=== PATIENT | female | born 1970 | race Caucasian/White ===

== ENCOUNTER 2023-11-10 08:44 | Emergency (ER) | payer OTHER, BC ==
[2023-11-10 08:58] VITALS: TEMP 98.2
--- NOTE | 2023-11-10 09:04 | ED ---
Recheck HPI - General Chief Complaint: Recheck/Abnormal Lab/Rx Stated Complaint: poss DVT Time Seen by Provider: 11/10/23 08:49 Source: patient, RN notes reviewed Mode of arrival: ambulatory Limitations: no limitations - History of Present Illness Initial Comments: This is a 53-year-old female who presents to the emergency department for coughing and congestion. Symptoms started 2 weeks ago. States that she was diagnosed with pneumonia. She was given a shot of antibiotics at her primary care provider's office a couple of days ago and given a prescription for albuterol and steroids. States that it no longer hurts to breathe and she feels like she may be improving to some extent, but is still symptomatic. Cough is productive with yellow sputum. She only had mild chest discomfort when trying to cough, but otherwise denies any chest pain or shortness of breath. Also denies any pain in her extremities. Her primary care provider advised she come to the emergency department to rule out a blood clot. Denies any history of blood clots. Not taking any blood thinners. - Related Data Home Medications Medication Instructions Recorded Confirmed Albuterol Sulfate [Albuterol 1 - 2 puff PO RT-Q4H PRN 11/10/23 11/10/23 Sulfate Hfa] Atorvastatin [Lipitor] 20 mg PO HS 11/10/23 11/10/23 amLODIPine [Norvasc] 10 mg PO HS 11/10/23 11/10/23 predniSONE 10 mg PO DAILY 11/10/23 11/10/23 Previous Rx's Medication Instructions Recorded Levofloxacin [Levaquin] 750 mg PO DAILY 5 Days #5 tab 11/10/23 Allergies Allergy/AdvReac Type Severity Reaction Status Date / Time No Known Allergies Allergy Verified 11/10/23 09:22 Review of Systems ROS Statement: Those systems with pertinent positive or pertinent negative responses have been documented in the HPI. ROS Other: All systems not noted in ROS Statement are negative. Past Medical History Past Medical History: Hyperlipidemia, Hypertension History of Any Multi-Drug Resistant Organisms: None Reported Past Surgical History: No Surgical Hx Reported Past Psychological History: No Psychological Hx Reported Smoking Status: Current every day smoker Past Alcohol Use History: Occasional Past Drug Use History: None Reported General Exam Limitations: no limitations General appearance: alert, in no apparent distress Head exam: Present: atraumatic, normocephalic, normal inspection Respiratory exam: Present: normal lung sounds bilaterally. Absent: respiratory distress, wheezes, rales, rhonchi, stridor Cardiovascular Exam: Present: normal rhythm, tachycardia Neurological exam: Present: alert, oriented X3, CN II-XII intact Psychiatric exam: Present: normal affect, normal mood Skin exam: Present: warm, dry, intact, normal color. Absent: rash Course Vital Signs 11/10/23 11/10/23 11/10/23 08:46 09:04 09:19 Temperature 98.2 F Pulse Rate 110 H 104 H Respiratory 22 20 20 Rate Blood Pressure 179/87 167/95 O2 Sat by Pulse 98 96 Oximetry 11/10/23 11/10/23 10:00 11:59 Temperature Pulse Rate 90 85 Respiratory 20 20 Rate Blood Pressure 150/80 145/98 O2 Sat by Pulse 96 97 Oximetry Medical Decision Making - Medical Decision Making This is a 53 year old female who presents to the emergency department for a cough. Was pt. sent in by a medical professional or institution? @ -Her PCP Did you speak to anyone other than the patient for history? @ -No Did you review nursing and triage notes? @ -Yes, and I agree, it is accurate with regards to the patient's symptoms. Were old charts reviewed? @ -No Differential Diagnosis? @ -Differential Cough: Influenza, Covid, RSV, croup, allergic rhinitis, GERD, pneumonia, bronchitis, COPD, viral pharyngitis, streptococcal pharyngitis, this is not meant to be an all-inclusive list. EKG interpreted by me (3pts min.)? @ -EKG interpreted by me demonstrating the following: Sinus tachycardia. Ventricular rate 109 bpm, CT interval 127 ms, QRS duration 90 ms, QTc 385 ms. X-rays interpreted by me (1pt min.)? @ -Chest x-ray obtained. My interpretation identifies an opacity in the right midlung. CT interpreted by me (1pt min.)? @ -CTA of the chest obtained. My interpretation identifies no evidence of a pulmonary embolus. U/S interpreted by me (1pt. min.)? @ -Not obtained What testing was considered but not performed? (CT, X-rays, U/S, labs)? Why? @ -None What meds were considered but not given? Why? @ -None Did you discuss the management of the patient with other professionals? @ -No Did you reconcile home meds? @ -No Was smoking cessation discussed for >3mins.? @ -I discussed smoking cessation for greater than 3 minutes. The risk of sm oking were discussed with the patient including but not limited to risks of cancer, stroke, coronary artery disease and COPD. Also discussed with patient were multiple methods of quitting smoking. Lastly we discussed the financial cost of smoking. Was critical care preformed (if so, how long)? @ -No Were there social determinants of health that impacted care today? How? (Homelessness, low income, unemployed, alcoholism, drug addiction, transportation, low edu. Level, literacy, decrease access to med. care, penitentiary, rehab)? @ -No Was there de-escalation of care discussed even if they declined? (Discuss DNR or withdrawal of care, Hospice)? @ -No What co-morbidities impacted this encounter? (DM, HTN, Smoking, COPD, CAD, Cancer, CVA, Hep., AIDS, mental health diagnosis, sleep apnea, morbid obesity)? @ -HLD, HTN, smoking Was patient admitted / discharged? @ -Lab work demonstrates an elevated lactic acid of 4.1. D-dimer also elevated at 1.04. Chest x-ray demonstrates a right midlung airspace opacity. They advised correlation for pneumonia versus mass. Given the elevated D-dimer and the patient's symptoms, CTA of the chest was obtained. This demonstrated no evidence of a pulmonary embolus. There is a right hilar lung mass suspicious for neoplasm. This appears to be encasing the right middle lobe bronchus with narrowing. There are also enlarged mediastinal lymph nodes and multiple pulmonary nodules and cavitations in the bilateral lung davis suspicious for metastatic disease. Discussed with the patient the possibility of severe pneumonia versus neoplasm. I strongly advise admission for further management and workup. Also advised that if this were to be pneumonia she would meet septic criteria. Patient adamantly refused any admission and requested discharge immediately. Patient informed of risks of discharge such as continuing to decompensate and . She expresses understanding and still wants to leave. She was agreeable to a dose of azithromycin and Rocephin in the emergency department. Which were administered along with IV fluids. Prescription for Levaquin was provided with dosing instructions reviewed. Information for follow-up with pulmonology was provided. Patient subsequently signed out AGAINST MEDICAL ADVICE. Undiagnosed new problem with uncertain prognosis? @ -None Drug Therapy requiring intensive monitoring for toxicity (Heparin, Nitro, Insulin, Cardizem)? @ -None Were any procedures done? @ -None Diagnosis/symptom? @ -Pneumonia, abnormal lung CT Acute, or Chronic, or Acute on Chronic? @ -Acute Uncomplicated (without systemic symptoms) or Complicated (systemic symptoms)? @ -Complicated Side effects of treatment? @ -None Exacerbation, Progression, or Severe Exacerbation] @ -Not applicable Poses a threat to life or bodily function? @ -Yes This case was discussed in detail with the attending ED physician, Dr. Felton. Presentation, findings, and treatment plan discussed in detail as well. - Lab Data Result diagrams: 11/10/23 09:15 11/10/23 09:15 Lab Results 11/10/23 11/10/23 11/10/23 Range/Units 09:15 09:15 09:15 WBC 10.3 (3.8-10.6) k/uL RBC 4.25 (3.80-5.40) m/uL Hgb 13.5 (11.4-16.0) gm/dL Hct 41.8 (34.0-46.0) % MCV 98.5 (80.0-100.0) fL MCH 31.8 (25.0-35.0) pg MCHC 32.3 (31.0-37.0) g/dL RDW 13.2 (11.5-15.5) % Plt Count 478 H (150-450) k/uL MPV 7.2 Neutrophils % 81 % Lymphocytes % 13 % Monocytes % 5 % Eosinophils % 0 % Basophils % 0 % Neutrophils # 8.3 H (1.3-7.7) k/uL Lymphocytes # 1.3 (1.0-4.8) k/uL Monocytes # 0.5 (0-1.0) k/uL Eosinophils # 0.0 (0-0.7) k/uL Basophils # 0.0 (0-0.2) k/uL PT 9.7 L (10.0-12.5) sec INR 0.9 (<1.2) APTT 23.4 (22.0-30.0) sec D-Dimer 1.04 H (<0.60) mg/L FEU Sodium 136 L (137-145) mmol/L Potassium 4.0 (3.5-5.1) mmol/L Chloride 100 (98-107) mmol/L Carbon Dioxide 22 (22-30) mmol/L Anion Gap 14 mmol/L BUN 15 (7-17) mg/dL Creatinine 0.55 (0.52-1.04) mg/dL Est GFR (CKD-EPI)AfAm >90 (>60 ml/min/1.73 sqM) Est GFR (CKD-EPI)NonAf >90 (>60 ml/min/1.73 sqM) Glucose 106 H (74-99) mg/dL Lactic Ac Sepsis Rflx Plasma Lactic Acid Landry (0.7-2.0) mmol/L Calcium 9.8 (8.4-10.2) mg/dL Total Bilirubin 0.3 (0.2-1.3) mg/dL AST 28 (14-36) U/L ALT 20 (4-34) U/L Alkaline Phosphatase 85 (38-126) U/L Troponin I (0.000-0.034) ng/mL NT-Pro-B Natriuret Pep 566 pg/mL Total Protein 7.7 (6.3-8.2) g/dL Albumin 4.1 (3.5-5.0) g/dL Influenza Type A (PCR) (Not Detectd) Influenza Type B (PCR) (Not Detectd) RSV (PCR) (Not Detectd) SARS-CoV-2 (PCR) (Not Detectd) 11/10/23 11/10/23 11/10/23 Range/Units 09:15 09:15 09:15 WBC (3.8-10.6) k/uL RBC (3.80-5.40) m/uL Hgb (11.4-16.0) gm/dL Hct (34.0-46.0) % MCV (80.0-100.0) fL MCH (25.0-35.0) pg MCHC (31.0-37.0) g/dL RDW (11.5-15.5) % Plt Count (150-450) k/uL MPV Neutrophils % % Lymphocytes % % Monocytes % % Eosinophils % % Basophils % % Neutrophils # (1.3-7.7) k/uL Lymphocytes # (1.0-4.8) k/uL Monocytes # (0-1.0) k/uL Eosinophils # (0-0.7) k/uL Basophils # (0-0.2) k/uL PT (10.0-12.5) sec INR (<1.2) APTT (22.0-30.0) sec D-Dimer (<0.60) mg/L FEU Sodium (137-145) mmol/L Potassium (3.5-5.1) mmol/L Chloride (98-107) mmol/L Carbon Dioxide (22-30) mmol/L Anion Gap mmol/L BUN (7-17) mg/dL Creatinine (0.52-1.04) mg/dL Est GFR (CKD-EPI)AfAm (>60 ml/min/1.73 sqM) Est GFR (CKD-EPI)NonAf (>60 ml/min/1.73 sqM) Glucose (74-99) mg/dL Lactic Ac Sepsis Rflx Plasma Lactic Acid Landry 4.1 H* (0.7-2.0) mmol/L Calcium (8.4-10.2) mg/dL Total Bilirubin (0.2-1.3) mg/dL AST (14-36) U/L ALT (4-34) U/L Alkaline Phosphatase (38-126) U/L Troponin I <0.012 (0.000-0.034) ng/mL NT-Pro-B Natriuret Pep pg/mL Total Protein (6.3-8.2) g/dL Albumin (3.5-5.0) g/dL Influenza Type A (PCR) Not Detected (Not Detectd) Influenza Type B (PCR) Not Detected (Not Detectd) RSV (PCR) Not Detected (Not Detectd) SARS-CoV-2 (PCR) Not Detected (Not Detectd) 11/10/23 Range/Units 10:13 WBC (3.8-10.6) k/uL RBC (3.80-5.40) m/uL Hgb (11.4-16.0) gm/dL Hct (34.0-46.0) % MCV (80.0-100.0) fL MCH (25.0-35.0) pg MCHC (31.0-37.0) g/dL RDW (11.5-15.5) % Plt Count (150-450) k/uL MPV Neutrophils % % Lymphocytes % % Monocytes % % Eosinophils % % Basophils % % Neutrophils # (1.3-7.7) k/uL Lymphocytes # (1.0-4.8) k/uL Monocytes # (0-1.0) k/uL Eosinophils # (0-0.7) k/uL Basophils # (0-0.2) k/uL PT (10.0-12.5) sec INR (<1.2) APTT (22.0-30.0) sec D-Dimer (<0.60) mg/L FEU Sodium (137-145) mmol/L Potassium (3.5-5.1) mmol/L Chloride (98-107) mmol/L Carbon Dioxide (22-30) mmol/L Anion Gap mmol/L BUN (7-17) mg/dL Creatinine (0.52-1.04) mg/dL Est GFR (CKD-EPI)AfAm (>60 ml/min/1.73 sqM) Est GFR (CKD-EPI)NonAf (>60 ml/min/1.73 sqM) Glucose (74-99) mg/dL Lactic Ac Sepsis Rflx Y Plasma Lactic Acid Landry (0.7-2.0) mmol/L Calcium (8.4-10.2) mg/dL Total Bilirubin (0.2-1.3) mg/dL AST (14-36) U/L ALT (4-34) U/L Alkaline Phosphatase (38-126) U/L Troponin I (0.000-0.034) ng/mL NT-Pro-B Natriuret Pep pg/mL Total Protein (6.3-8.2) g/dL Albumin (3.5-5.0) g/dL Influenza Type A (PCR) (Not Detectd) Influenza Type B (PCR) (Not Detectd) RSV (PCR) (Not Detectd) SARS-CoV-2 (PCR) (Not Detectd) - Radiology Data Radiology results: report reviewed, image reviewed Disposition Clinical Impression: Pneumonia, Abnormal CT of the chest Disposition: LEFT AGAINST MEDICAL ADVICE Additional Instructions: Take the antibiotic as prescribed for 5 days. Contact the associate director data & analytics listed below for a follow-up appointment. Follow up with your primary care provider in 1-2 days. Prescriptions: Levofloxacin [Levaquin] 750 mg PO DAILY 5 Days #5 tab Is patient prescribed a controlled substance at d/c from ED?: No Referrals: Kp Del Rosario MD [STAFF PHYSICIAN] - 1-2 days Ana Baker MD [STAFF PHYSICIAN] - 1-2 days
[2023-11-10 09:35] LABS: Basophils % (A) 0 %; Eosinophils % (A) 0 %; HCT 41.8 % (34.0-46.0); HGB 13.5 gm/dL (11.4-16.0); Lymphocytes # (A) 1.3 k/uL (1.0-4.8); Lymphocytes % (A) 13 %; MCH 31.8 pg (25.0-35.0); MCHC 32.3 g/dL (31.0-37.0); MCV 98.5 fL (80.0-100.0); Mean Platelet Volume 7.2; Monocytes # (A) 0.5 k/uL (0-1.0); Monocytes % (A) 5 %; Neutrophils # (A) 8.3 k/uL (1.3-7.7); Neutrophils % (A) 81 %; Platelet Count 478 k/uL (150-450); RBC 4.25 m/uL (3.80-5.40); RDW 13.2 % (11.5-15.5); WBC 10.3 k/uL (3.8-10.6)
--- NOTE | 2023-11-10 09:40 | XR ---
EXAMINATION TYPE: XR chest 2V DATE OF EXAM: 11/10/2023 9:32 AM CLINICAL INDICATION:Female, 53 years old with history of difficulty breathing; [facility] COMPARISON: Chest radiographs from 11/10/2023. TECHNIQUE: XR chest 2V Frontal and lateral views of the chest. FINDINGS: Lungs/Pleura: Right midlung airspace opacities on the right perihilar region. There is no evidence of pleural effusion, focal consolidation, or pneumothorax. Pulmonary vascularity: Unremarkable. Heart/mediastinum: Cardiomediastinal silhouette is unremarkable. Musculoskeletal: No acute osseous pathology. IMPRESSION: Right midlung airspace opacities correlate for pneumonia. If there is no signs of pneumonia consider cross-sectional imaging to rule out mass.
[2023-11-10 09:43] LABS: INR 0.9 (<1.2)
[2023-11-10 09:44] LABS: Partial Thromboplastin Time 23.4 sec (22.0-30.0); Prothrombin Time 9.7 sec (10.0-12.5)
[2023-11-10 09:58] LABS: AST 28 U/L (14-36); African American GFR (CKD) >90 (>60 ml/min/1.73 sqM); Albumin 4.1 g/dL (3.5-5.0); Alkaline Phosphatase 85 U/L (38-126); Anion Gap 14 mmol/L; Blood Urea Nitrogen 15 mg/dL (7-17); Calcium 9.8 mg/dL (8.4-10.2); Carbon Dioxide 22 mmol/L (22-30); Chloride 100 mmol/L (98-107); Glucose 106 mg/dL (74-99); Non-African American GFR(CKD) >90 (>60 ml/min/1.73 sqM); Sodium 136 mmol/L (137-145); Total Bilirubin 0.3 mg/dL (0.2-1.3); Total Protein 7.7 g/dL (6.3-8.2)
[2023-11-10 10:00] LABS: ALT 20 U/L (4-34)
[2023-11-10 10:06] LABS: NT-Pro-B-Type Natriuretic Pept 566 pg/mL
[2023-11-10 10:24] VITALS: RESP 20
[2023-11-10] MEDS: SODIUM CHLORIDE 0.9% 1,000 ML IV STA (10:51)
[2023-11-10] MEDS: SODIUM CHLORIDE 0.9% 500 ML 500 ML IV STA (10:51)
--- NOTE | 2023-11-10 11:25 | CT ---
CTA CHEST EXAMINATION TYPE: CT chest angio for PE DATE OF EXAM: 11/10/2023 INDICATION: PE CT DLP: 159.6 mGycm, Automated exposure control for dose reduction was used. CONTRAST: Patient injected with 65 mL of Isovue 370. COMPARISON: None TECHNIQUE: CT of the chest is performed on a spiral scan at 2 mm thick sections. Study is performed with intravenous contrast timed for evaluation for pulmonary embolism. This will limit additional po rtions of the evaluation. 3-D MIP images reconstructed by the technologist are reviewed on the compu ter in the coronal and sagittal planes. FINDINGS: No persistent filling defects are evident to suggest an acute pulmonary embolism. Enlarged matted adenopathy is within the mediastinum. Enlarged subcarinal lymph node measures 1.3 cm. Largest pretracheal lymph node may measure 1.7 cm. The ascending aorta diameter at the level of the main pulmonary artery is 2.9 cm. The main pulmonary artery diameter at the bifurcation is 2.6 cm. There is an irregular suspicious mass measuring 2.2 cm posterior right upper lung field. Series 5 efrain ge 56. Underlying mass and pneumonia are within the differential. There is a 1.0 cm peripheral nodule right lung, series 5 image 60. There is a complex cavitation within self in the posterior lateral right lung. Series 5 image 80. A similar smaller cavitations at the left lung base same level. There is a cavitation adjacent soft tissue density measuring 1.5 cm. Series 5 image 97. There is a 0.8 cm nodule medial right lung base. Series 5 image 114. Consolidation is in the right lower lobe. Correlate for atelectasis and pneumonia. Underlying hilar m ass is suspected with narrowing of the right middle lobe bronchus Limited CT sections were through the upper abdomen. Upper abdomen appears unremarkable. IMPRESSION: 1. No acute pulmonary embolism. 2. Right hilar lung mass suspicious for neoplasm. This appears to be encasing the right middle lobe b ronchus with narrowing. 3. Enlarged mediastinal lymph nodes and multiple pulmonary nodules and cavitations bilateral lung fie lds suspicious for metastatic disease.
[2023-11-10] MEDS: AZITHROMYCIN 500 MG TAB PO STA (11:48)
[2023-11-10] MEDS: cefTRIAXone IN SWFI 1,000 MG/10 ML SYRINGE IVP STA (11:50)
[2023-11-10 12:34] VITALS: BP 145/98; PULSE 85
== END 2023-11-10 12:01 | disposition left against medical advice (07) ==
LOC: EC 08:44
DX: J18.9 Pneumonia, unspecified organism (principal); R91.8 Other nonspecific abnormal finding of lung field; E78.5 Hyperlipidemia, unspecified; I10 Essential (primary) hypertension; F17.200 Nicotine dependence, unspecified, uncomplicated; Z79.899 Other long term (current) drug therapy; Z53.29 Procedure and treatment not carried out because of patient's decision for other reasons
CPT/HCPCS: 36415; 93005; 85379; 83880; 80053; 83605; 84484; 85025; 85610; 85730; 87636; 71046; 71275; 99284; 96374; 96361; 99406; J0696; Q9967

== ENCOUNTER → 2023-12-14 | Outpatient (CLI) | payer OTHER, BC ==
--- NOTE | 2023-12-16 15:25 | PE ---
EXAMINATION TYPE: PET CT fusion skull to thigh DATE OF EXAM: 12/14/2023 COMPARISON: 11/10/2023 Prior PET/CT: No prior at this location HISTORY: Lung nodule, mass TECHNIQUE: Following the intravenous administration of 10.05 mCi of F-18 FDG, whole body images are performed from the skull base to the midthigh. Images are reviewed on the computer in the coronal, a xial, and sagittal planes. Reconstructed rotating images are created on independent workstation and reviewed on the computer. A localization and attenuation correction CT is performed in conjunction with the PET scan. DLP: 245.65 mGycm SCAN: Initial Blood glucose: 100 mg/dL Average Mediastinum SUV: 2.1 Average Liver SUV: 2.27 FINDINGS: NECK: No abnormal uptake THORAX: There is abnormal uptake within a right posterior apical mass, image 75, SUV 14.53. Additiona l uptake is within scattered lung masses, example images 78 lateral right upper lung field, SUV 5.22, right infrahilar mass, image 83, SUV 12.58, right middle lobe mass image 92, SUV 9.97, posterior lat eral right lung image 96, SUV 8.09. There is some faint uptake within the medial right lung base nodu le, image 109, SUV 3.24. Right hilar uptake is present, image 8, SUV 10.76. Mediastinal uptake is pre sent, example image 83, SUV 7.19, posterior tracheal, image 72, SUV 7.98, superior mediastinum image 69, SUV 4.58. There is some faint uptake within the left posterior lung, image 86, SUV 2.25. ABDOMEN: No abnormal uptake PELVIS: No abnormal uptake OSSEOUS STRUCTURES: No abnormal uptake LOCALIZATION CT: Coronary artery calcifications present. COMPARISON: Abnormalities correspond to the CT of 11/10/2023. IMPRESSION: 1. Abnormal uptake within left lung and left hilar masses variable with primary and/or metastatic dis ease. 2. Additional punctate areas of uptake within the mediastinum and additional scattered small nodules within the right and possibly left lung compatible with metastasis.
== END | disposition home or self-care (01) ==
LOC: RADPETMAIN 10:22
PROVIDERS: ATTEND Internal Medicine Critical Care Medicine
DX: R91.8 Other nonspecific abnormal finding of lung field (principal)
CPT/HCPCS: 78815; A9552

== ENCOUNTER 2023-12-28 13:50 | Day surgery (SDC) | payer OTHER, BC ==
[2023-12-27 10:44] VITALS: BMI 22.8
[~2023-12-28 13:50] MED LIST: HYDROmorphone 0.5 MG/0.5 ML SYRINGE IVP PRN; LACTATED RINGERS 1,000 ML IV SCH; LIDOCAINE 1% (10MG/ML) FOR IV START INTRADERMA PRN; SCOPOLAMINE 1 MG/72 HR PATCH TRANSDERM ONE
[2023-12-28] MEDS: LACTATED RINGERS 1,000 ML IV SCH (14:21)
[2023-12-28] MEDS: DEXAMETHASONE SOD PHOSPHATE 4 MG/ML 1 ML VIAL IV ONE (14:21)
[2023-12-28] MEDS: ONDANSETRON 4 MG/2 ML VIAL IVP ONE (14:22)
[2023-12-28] MEDS: IV FLUID CONTINUATION 1,000 ML IV ONE (14:24)
[2023-12-28] MEDS ORDERED: fentaNYL (PF) 50 MCG/ML 2 ML AMP ONE (15:05)
[2023-12-28] MEDS ORDERED: MIDAZOLAM 2 MG/2 ML VIAL ONE (15:05)
[2023-12-28] MEDS ORDERED: LIDOCAINE 1% INJ 10MG/ML (20 ML MDV) ONE (15:05)
[2023-12-28] MEDS ORDERED: PROPOFOL 10 MG/ML 20 ML VIAL IV ONE (15:05)
[2023-12-28] MEDS ORDERED: SUCCINYLCHOLINE CHLORIDE 200 MG/10 ML VIAL IV ONE (15:05)
--- NOTE | 2023-12-28 16:08 | P.PCN ---
Date of Procedure: 12/28/23 Preoperative Diagnosis: metastatic disease with multiple lung masses involving the right hilum, right upper lobe and mediastinum in addition to scattered smaller nodules within the right and possibly left lung compatible with metastatic disease. Postoperative Diagnosis: same Procedure(s) Performed: flexible bronchoscopy Endobronchial biopsy of a right upper lobe mass, bronchioloalveolar lavage of the right upper lobe endobronchial ultrasound transbronchial needle aspirate of right hilar and paratracheal lymph nodes, EBUS guided. Anesthesia: GETA Surgeon: Ana Baker Pathology: other Condition: stable Disposition: same day Operative Findings: this procedure was done in the endoscopy suite. Patient was intubated and placed on a mechanical ventilator in the usual fashion. The patient was intubated by a #8 orotracheal tube. The flexible bronchoscope was introduced into the orotracheal tube and was advanced into the lower trachea. Distal trachea was within normal limits. Anca was sharp in the midline. A complete airway examination was done. Right main stem bronchus was patent. Along the medial wall of the right main stem bronchus and the bronchus intermedius, there was some endobronchial irregularities. The right upper lobe bronchus was narrowed and there was endobronchial tumor at the distal right main stem bronchus at the level of uptake of the right upper lobe bronchus. The endobronchial abnormalities are most likely consistent with tumor as the surface of the airway was quite friable and irregular and bumpy. The right upper lobe bronchus was narrowed by around 50% was normal caliber. I was able to push the bronchoscope through this area and visualize the various segments of the right upper lobe. Following that, the bronchoscope was moved to the bronchus intermedius, right middle lobe and the right lower lobe bronchi were inspected along with the various segments. Exact duration of the left side included left mainstem bronchus, left upper lobe bronchus and left lower lobe bronchus and the various segments on the left were essentially patent and within normal limits. The bronchoscope was then moved to the right upper lobe bronchus and endobronchial biopsies of the right upper lobe endobronchial tumor was done without any complications. There was some limited amount of bleeding post biopsy that subsided without any complications. A bronchioloalveolar lavage of the right upper lobe was done. A total of 60 mL of saline was infused and 20 mL was aspirated. Aspirate was bloody. Subsequently, the endobronchial ultrasound was inserted and under EBUS guidance, a large right hilar mass was identified that was measuring more than 4 cm in siz e. There was another paratracheal lymph node just posterior to the distal trachea to the right and the level of thebifurcation the right main stem bronchus Using a 22-gauge needle, chest moderate aspirate of the right hilar mass was done and a total of 5 passes were taken. Transbronchial needle aspirate of the paratracheal lymph node was also done a total of 4 passes. No complications. And the bronchial ultrasound was removed. Bronchoscope was inserted and therapeutic airway suctioning was done and limited amount of bloody secretions were suctioned out without any major difficulties. The procedure was terminated. The flexible bronchoscope was removed. The patient was transferred to recovery in stable condition.
[2023-12-28 16:09] VITALS: TEMP 98.1
[2023-12-28] MEDS: hydrALAZINE HCL 20 MG/ML 1 ML VIAL IM STA (16:17)
[2023-12-28 16:53] VITALS: RESP 20
[2023-12-28 17:07] VITALS: BP 170/83; PULSE 109
[2023-12-29 07:29] LABS: Appearance,BF Bloody (Clear); RBC, Body Fluid 128500 /UL (0-2000)
[2023-12-29 09:39] LABS: Nucleated Cells, Body Fluid 2000 /UL
== END 2023-12-28 17:22 | disposition home or self-care (01) ==
LOC: ORWHC2ENDO 13:50
PROVIDERS: ATTEND Internal Medicine Critical Care Medicine
DX: C34.11 Malignant neoplasm of upper lobe, right bronchus or lung (principal); I10 Essential (primary) hypertension; E78.5 Hyperlipidemia, unspecified; J44.9 Chronic obstructive pulmonary disease, unspecified; F17.200 Nicotine dependence, unspecified, uncomplicated; Z86.711 Personal history of pulmonary embolism; Z79.51 Long term (current) use of inhaled steroids; Z79.899 Other long term (current) drug therapy
CPT/HCPCS: 88108; 88305; 89050; 87070; 87205; 87116; 87102; 87206; 31629; 31625; 31624; 31652; J2250; J0330; J0360; J1100; J2405; J2001; J3010; J2704; 87496; 87498; 87502; 87529; 87634; 87635; 87798

== ENCOUNTER → 2024-02-08 | Outpatient (CLI) | payer OTHER, BC ==
--- NOTE | 2024-02-09 12:13 | PE ---
EXAMINATION TYPE: PET CT fusion skull to thigh DATE OF EXAM: 02/08/2024 CLINICAL INDICATION:Female, 53 years old with history of C34.91 LUNG CANCER; TECHNIQUE: Following the intravenous administration of 13.28 mCi of F-18 FDG, whole body images are performed from the skull base to the midthigh. Images are reviewed on the computer in the coronal, axial, and sagittal planes. Reconstructed rotating images are created on independent workstation and reviewed on the computer. A non-contrast CT is performed in conjunction with the PET scan. Glucose level 115 mg/dL CT DLP: 261 mGycm, Automated exposure control for dose reduction was used. COMPARISON: CT None, PET/CT 12/14/2023, MRI: None FINDINGS: Mediastinal SUV mean is 1.7. Hepatic parenchyma SUV mean is 1.6. SKULL BASE AND NECK: No suspicious radiotracer activity. CHEST, MEDIASTINUM, AND HILAR REGION: * Redemonstration of multiple cavitary lesions throughout the lungs most pronounced in the right nicholas g superiorly. * Overall findings of increased consolidation changes and at least one lesion series 3 image 87 galen uring 26 mm with central cavitation head more gas in the cavitation on prior. Other consolidation ghazala nges are similar to prior. This lesion 13.9, previously 12.6. * Right pulmonary hilum dominant mass which is poorly measure given lack of IV contrast measures at least 4.5 x 2.7 cm. max SUV 18.8, previously 16.3. * Multiple other areas of abnormal uptake are present left lower lung max SUV 4.7 previously 2.9 pa suring 14 mm previously 14 mm. * right lower lung peripheral max SUV 10.8, previously 3.4 measuring 20 mm previously 18 mm * Posterior right upper lung measuring 15 mm, previously more solid measuring 25 mm max SUV 13.4, pr eviously 15.8. * Left upper lung max SUV 3.8 previously 1.6. Lymphadenopathy in the mediastinum. * Posterior tracheal max SUV 16.7, previously 12.6. * Right paratracheal max SUV 4.5, previously 4.6. Focus of abnormal FDG activity within the left breast max SUV 2.9 previously 2.4. ABDOMEN AND PELVIS: * No suspicious radiotracer activity. * Posterior buttock suspected injection granuloma uptake max SUV 2.6. Previously 1.9. MUSCULOSKELETAL STRUCTURES: No suspicious radiotracer activity. OTHER CT: Mild vascular calcifications. Coronary artery atherosclerosis is moderate. Hepatic steatosi s. IMPRESSION: 1. Overall findings of progression of disease of dominant right perihilar mass with multiple cystic lesions throughout the lungs with increased metabolic activity. There is also increasing metabolic ac tivity within a few of the mediastinal lymph nodes. 2. Tiny focus of abnormal FDG activity within the left breast correlate with mammography.
== END | disposition home or self-care (01) ==
LOC: RADPETMAIN 07:05
PROVIDERS: ATTEND Internal Medicine Medical Oncology
DX: J98.4 Other disorders of lung (principal); C34.91 Malignant neoplasm of unspecified part of right bronchus or lung; R92.8 Other abnormal and inconclusive findings on diagnostic imaging of breast
CPT/HCPCS: 78815; A9552

== ENCOUNTER → 2024-04-01 | Outpatient (CLI) | payer OTHER, BC ==
[2024-04-01 11:54] LABS: African American GFR (CKD) >90 (>60 ml/min/1.73 sqM); Blood Urea Nitrogen 7 mg/dL (7-17); Non-African American GFR(CKD) >90 (>60 ml/min/1.73 sqM)
--- NOTE | 2024-04-01 12:38 | CT ---
EXAMINATION TYPE: CT chest w con CT DLP: 387 mGycm, Automated exposure control for dose reduction was used. DATE OF EXAM: 04/01/2024 12:18 PM COMPARISON: Pet/CT 02/08/2024, 12/14/2023, CT chest 11/10/2023 CLINICAL INDICATION: Female, 53 years old with history of C34.2 LUNG CANCER; PHH, Hx lung ca TECHNIQUE: Multiple axial images were obtained through the chest. Sagittal and coronal reformats were created for review. Contrast used:100 mL of Isovue 300 with IV Contrast (None if empty) Oral contrast used: (None if empty) FINDINGS: LUNGS/ PLEURA: Redemonstration of metastatic disease with mixed cystic and solid lesions. Examples include: * The right lateral upper lung pulmonary nodule measures slightly larger at 12 mm previously 10 mm. * Dominant right perihilar mass now measuring 5.0 x 3.2 cm transversely 4.6 x 3.5 cm. * Cystic lesion anterior right perihilar region previously 26.3 mm, now 26.4 mm with more cystic com ponent. * Left lower lobe cystic lesion measuring 17 mm, previously 15 mm. * Right lower lobe cystic lesion measuring 24 mm previously 24 mm. * An in inferior to the cystic lesion in the right lower lobe has increased in size measuring 20 mm, previously 10 mm. Series 3 image 39. * r right lower lobe medial 12 mm, previously 10 mm series 3 image 46. AIRWAY: Patent and unremarkable. HEART: Size within normal limits. MEDIASTINUM: Mediastinal lymphadenopathy right low paratracheal lymph node measuring 16 mm, previousl y 17 mm. VASCULATURE : No aortic aneurysm. MUSCULOSKELETAL: No acute osseous abnormalities SOFT TISSUES/LYMPH NODES: Unremarkable. LOWER NECK: No significant findings. UPPER ABDOMEN: Partially visualized right superior renal mass measuring at least 3.3 cm and left kelli l cortical mass measuring 31 mm this 34 mm on the right and 22 mm on the left respectively. These are difficult to see on prior pets without IV contrast. Left adrenal nodule measuring 15 mm. Similar to prior PET 12/14/2023. Diffuse low-attenuation to the liver. IMPRESSION: 1. Mild progression of disease suggested in the lungs with a few lesions increasing in size compared to CT/PET on 02/08/2024 suggesting progression of disease. 2. Masses within the kidneys possibly representing renal metastatic disease versus primary neoplasms these are seen dating back to 11/10/2023 CT chest and may be fractionally larger in size. There is dif ficult to see on noncontrast PET/CT. 3. Hepatic steatosis. 4. Stable left adrenal nodular thickening possibly representing adrenal adenoma. Findings communicated to Dr. Aravind Ac MD on 04/01/2024 12:[address] Robbie Fontaine. [facility], , 04/01/2024 12:36 PM
== END | disposition home or self-care (01) ==
LOC: RADCTMAIN 11:05
PROVIDERS: ATTEND Internal Medicine Hematology & Oncology
DX: C34.2 Malignant neoplasm of middle lobe, bronchus or lung
CPT/HCPCS: 36415; 71260; 82565; 84520

== ENCOUNTER → 2024-06-03 | Outpatient (CLI) | payer OTHER, BC ==
[2024-06-03 12:01] LABS: African American GFR (CKD) >90 (>60 ml/min/1.73 sqM); Blood Urea Nitrogen 8 mg/dL (7-17); Non-African American GFR(CKD) >90 (>60 ml/min/1.73 sqM)
--- NOTE | 2024-06-03 12:45 | CT ---
EXAMINATION TYPE: CT chest w con CT DLP: 132.6 mGycm, Automated exposure control for dose reduction was used. DATE OF EXAM: 06/03/2024 12:18 PM COMPARISON: CT chest 04/01/2024, CTA chest 11/10/2023, PET/CT 02/08/2024, 12/14/2023. CLINICAL INDICATION:Female, 54 years old with history of C34.2 LUNG CA; PHH, Lung ca TECHNIQUE: Multiple axial images were obtained through the chest following the administration of 100 cc of Isovue 300. . Coronal and sagittal reformats reviewed. FINDINGS: LUNGS/ PLEURA: No pleural effusion or pneumothorax. Increased size of right upper lobe masslike consolidation emanating from the right pulmonary hilum wi th regions of internal lucency and air bronchograms demonstrates spiculated margins and grossly measu res 8.1 x 9.0 cm (series 3, image 26). Previously measured 5.0 x 3.2 cm with adjacent peripherally th ick-walled cavitary lesions. Adjacent satellite nodule is redemonstrated and appears slightly decreased in size. This measures 0.8 cm (series 4, image 23), previously measured 1 cm. Stable 2.3 cm peripheral thin wall minimally complex pulmonary cyst within the right lower lobe withi n septations (series 4, image 29). Decreased wall thickening of complex cystic lesion within the right lower lobe periphery measuring 1. 3 cm (series 4, image 36). Previously measuring 1.7 cm. Stable superior segment left lower lobe peripheral minimally thick wall complex cystic lesion measuri ng 1.8 cm (series 4, image 32). Demonstrates then internal septations. Additional grossly stable peripheral left upper lobe thin-walled cystic lesion with internal septatio ns measuring up to 0.7 cm (series 4, image 20). AIRWAY: Patent. There is narrowing of the right mainstem bronchus due to surrounding adenopathy and r ight hilar pulmonary mass. HEART: Size within normal limits.No pericardial effusion MEDIASTINUM: Increased size of paratracheal lymph node measuring 2.3 cm, previously measured 1.6 cm. VASCULATURE : No aortic aneurysm. Atherosclerotic calcification of the aorta and its branches. MUSCULOSKELETAL: No acute osseous abnormalities. No aggressive osseous lesion. SOFT TISSUES/LYMPH NODES: Unremarkable. LOWER NECK: No significant findings. UPPER ABDOMEN: Partially visualized right superior renal mass redemonstrated measuring at least 3.4 c m and left renal cortical mass measuring at least 4.1 x 3.2 cm. These demonstrated focal FDG activity on prior PET CT. Subjectively appear larger from prior exam. Left adrenal nodule measuring 15 and is similar to prior PET 12/14/2023. Diffuse low-attenuation to the liver. Increased size of paracaval lym ph node measuring 1.2 cm short axis (series 3, image 63). IMPRESSION: 1. Overall progression of disease with development of masslike consolidation within the right upper lobe extending from the pulmonary hilum which likely represents a combination of known malignancy wit h postobstructive atelectasis and/or superimposed infection. Other previously seen mixed cystic pulmo nary lesions are relatively stable or demonstrate some decrease in wall thickening. There is increase d size of right paratracheal enlarged lymph node and enlarging pericaval lymph node. 2. Masses within the kidneys possibly representing renal metastatic disease versus primary neoplasms these are seen dating back to 11/10/2023 CT chest. These were FDG avid on prior PET/CT and appear subj ectively larger from prior exam. 3. Hepatic steatosis. 4. Stable left adrenal nodular thickening possibly representing adrenal adenoma. [facility], , 06/03/2024 12:43 PM
== END | disposition home or self-care (01) ==
LOC: RADCTMAIN 10:26
PROVIDERS: ATTEND Internal Medicine Hematology & Oncology
DX: C34.2 Malignant neoplasm of middle lobe, bronchus or lung (principal); J98.4 Other disorders of lung; R59.9 Enlarged lymph nodes, unspecified; K76.0 Fatty (change of) liver, not elsewhere classified; I70.0 Atherosclerosis of aorta; N28.89 Other specified disorders of kidney and ureter
CPT/HCPCS: 82565; 84520; 71260; 36415; Q9967

== ENCOUNTER 2024-08-09 17:16 | Observation (INO) | payer OTHER, BC ==
--- NOTE | 2024-08-09 17:41 | ED ---
General Adult HPI - General Stated complaint: Seizure Time Seen by Provider: 08/09/24 17:22 Source: patient, RN notes reviewed Limitations: no limitations - History of Present Illness Initial comments: Patient is a 54-year-old female present to the emergency department with concern for seizure. Onset of symptoms was prior to arrival. Patient states her witnessed this and it lasted around 45 seconds. Patient does admit to having around 4 beers earlier today as it is Monday. Patient states she does not normally drink much more than that. Patient does have known history of stage III lung cancer and is on chemotherapy. Patient does have history of 1 seizure around 3 weeks ago however did not follow-up or be seen following that episode. Patient feels normal at this time. No confusion. No fatigue or weakness. Patient denies any injury. - Related Data Home Medications Medication Instructions Recorded Confirmed Albuterol Sulfate [Albuterol 1 - 2 puff PO RT-Q4H PRN 11/10/23 12/27/23 Sulfate Hfa] Atorvastatin [Lipitor] 20 mg PO HS 11/10/23 12/27/23 amLODIPine [Norvasc] 10 mg PO HS 11/10/23 12/27/23 Calcium Carbonate [Calcium] 600 mg PO DAILY 12/27/23 12/27/23 Cholecalciferol (Vitamin D3) 125 mcg PO DAILY 12/27/23 12/27/23 [Vitamin D3 (125 MCG = 5,000 IU)] Fluticasone/Umeclidin/Vilanter 1 inhalation INHALATION DAILY PRN 12/27/23 12/27/23 [Trelegy Ellipta 100-62.5-25] Magnesium 400 mg PO DAILY 12/27/23 12/27/23 Potassium Chloride 10 meq PO DAILY 12/27/23 12/27/23 Allergies Allergy/AdvReac Type Severity Reaction Status Date / Time shellfish derived [Shellfish] Allergy Anaphylaxis Verified 12/27/23 10:14 Review of Systems ROS Statement: Those systems with pertinent positive or pertinent negative responses have been documented in the HPI. ROS Other: All systems not noted in ROS Statement are negative. Constitutional: Denies: fever Eyes: Denies: eye pain ENT: Denies: ear pain Respiratory: Denies: cough Cardiovascular: Denies: chest pain Musculoskeletal: Denies: back pain Skin: Denies: rash Neurological: Reports: as per HPI Past Medical History Past Medical History: COPD, Hyperlipidemia, Hypertension Additional Past Medical History / Comment(s): States PET scan shows a possible cancer. History of Any Multi-Drug Resistant Organisms: None Reported Past Surgical History: No Surgical Hx Reported Additional Past Surgical History / Comment(s): [place] teeth Past Anesthesia/Blood Transfusion Reactions: No Reported Reaction Smoking Status: Current every day smoker - Past Family History Mother Family Medical History: Cancer Additional Family Medical History / Comment(s): Lung General Exam Limitations: no limitations General appearance: alert, in no apparent distress Head exam: Present: normocephalic Eye exam: Present: normal appearance, PERRL, EOMI. Absent: nystagmus ENT exam: Present: normal oropharynx Neck exam: Present: normal inspection. Absent: tenderness Respiratory exam: Present: normal lung sounds bilaterally Cardiovascular Exam: Present: regular rate, normal rhythm GI/Abdominal exam: Present: soft. Absent: tenderness Extremities exam: Present: normal inspection. Absent: pedal edema, calf tenderness Neurological exam: Present: alert, oriented X3, CN II-XII intact. Absent: motor sensory deficit Expanded Neurological exam: Present: protecting the airway Patient oriented to: Present: person, place, time Speech: Present: fluid speech Cranial nerves: EOM's Intact: Normal Motor strength exam: RUE: 5, LUE: 5, RLE: 5, LLE: 5 Eye Response: (4) open spontaneously Motor Response: (6) obeys commands Verbal Response: (5) oriented Psychiatric exam: Present: normal affect, normal mood Skin exam: Present: normal color Course Vital Signs 08/09/24 18:16 Temperature 98.4 F Pulse Rate 100 Respiratory 18 Rate Blood Pressure 160/85 O2 Sat by Pulse 96 Oximetry EKG Findings - EKG Results: EKG: interpreted by ERMD, sinus rhythm, normal axis, normal QRS, normal ST/T EKG shows: tachycardia Medical Decision Making - Medical Decision Making Was pt. sent in by a medical professional or institution (, PA, SCREEN PRINTING PASTER, urgent care, hospital, or care home...) When possible be specific @ -No Did you speak to anyone other than the patient for history (EMS, parent, family, police, friend...)? What history was obtained from this source @ - arrives later and confirms that patient did have seizure lasting around 45 seconds Did you review nursing and triage notes (agree or disagree)? Why? @ -I reviewed and agree with nursing and triage notes Were old charts reviewed (outside hosp., previous admission, EMS record, old EKG, old radiological studies, urgent care reports/EKG's, care home records)? Report findings @ -No old charts were reviewed Differential Diagnosis (chest pain, altered mental status, abdominal pain women, abdominal pain men, vaginal bleeding, weakness, fever, dyspnea, syncope, headache, dizziness, GI bleed, back pain, seizure, CVA, palpatations, mental health, musculoskeletal)? @ -Differential Seizure: Recurrent seizure disorder, febrile seizure, alcohol withdrawal, stimulants, meningitis, encephalitis, intercranial hemorrhage, intracranial tumor, stroke, eclampsia, thyrotoxicosis, hypocalcemia, hyponatremia, hypernatremia, hypomagnesemia, psychogenic, this is not meant to be an all-inclusive list. EKG interpreted by me (3pts min.). @ -As above X-rays interpreted by me (1pt min.). @ -None done CT interpreted by me (1pt min.). @ -CT scan of the brain with and without contrast reveals no acute abnormality U/S interpreted by me (1pt. min.). @ -None done What testing was considered but not performed or refused? (CT, X-rays, U/S, labs)? Why? @ -MRI of the brain considered and will be ordered What meds were considered but not given or refused? Why? @ -None Did you discuss the management of the patient with other professionals (professionals i.e. , PA, SCREEN PRINTING PASTER, lab, RT, psych nurse, renal social worker, community health outreach worker, teacher, upscale security officer, shoe caser)? Give summary @ -Case was discussed with Dr. Badillo who will admit covering Dr. Hull Was smoking cessation discussed for >3mins.? @ -No Was critical care preformed (if so, how long)? @ -No Were there social determinants of health that impacted care today? How? (Homelessness, low income, unemployed, alcoholism, drug addiction, transportation, low edu. Level, literacy, decrease access to med. care, alf, rehab)? @ -No Was there de-escalation of care discussed even if they declined (Discuss DNR or withdrawal of care, Hospice)? DNR status @ -No What co-morbidities impacted this encounter? (DM, HTN, Smoking, COPD, CAD, Cancer, CVA, ARF, Chemo, Hep., AIDS, mental health diagnosis, sleep apnea, morbid obesity)? @ -History of stage III lung cancer Was patient admitted / discharged? Hospital course, mention meds given and route, prescriptions, significant lab abnormalities, going to OR and other pertinent info. @ -Patient presents with new onset seizure. Evaluation unremarkable. Patient will be admitted for MRI and neurology assessment. Patient reevaluated and updated. Admission orders written Undiagnosed new problem with uncertain prognosis? @ -No Drug Therapy requiring intensive monitoring for toxicity (Heparin, Nitro, Insulin, Cardizem)? @ -No Were any procedures done? @ -No Diagnosis/symptom? @ -New onset seizure Acute, or Chronic, or Acute on Chronic? @ -Acute Uncomplicated (without systemic symptoms) or Complicated (systemic symptoms)? @ -Default Side effects of treatment? @ -No Exacerbation, Progression, or Severe Exacerbation? @ -No Poses a threat to life or bodily function? How? (Chest pain, [place], [place], pneumonia, PE, COPD, DKA, ARF, appy, cholecystitis, CVA, Diverticulitis, Homicidal, Suicidal, threat to staff... and all critical care pts) @ -Threat to neurological function - Lab Data Result diagrams: 08/09/24 18:14 08/09/24 18:14 Lab Results 08/09/24 08/09/24 08/09/24 Range/Units 18:14 18:14 19:17 WBC 16.4 H (3.8-10.6) k/uL RBC 2.80 L (3.80-5.40) m/uL Hgb 9.5 L (11.4-16.0) gm/dL Hct 27.9 L (34.0-46.0) % MCV 99.8 (80.0-100.0) fL MCH 33.8 (25.0-35.0) pg MCHC 33.9 (31.0-37.0) g/dL RDW 18.1 H (11.5-15.5) % Plt Count 63 L (150-450) k/uL MPV 8.6 Neutrophils % 93 % Lymphocytes % 1 % Monocytes % 4 % Eosinophils % 1 % Basophils % 0 % Neutrophils # 15.2 H (1.3-7.7) k/uL Lymphocytes # 0.2 L (1.0-4.8) k/uL Monocytes # 0.6 (0-1.0) k/uL Eosinophils # 0.1 (0-0.7) k/uL Basophils # 0.1 (0-0.2) k/uL Manual Slide Review Performed Anisocytosis Slight Macrocytosis Moderate Sodium 128 L (137-145) mmol/L Potassium 4.9 (3.5-5.1) mmol/L Chloride 95 L (98-107) mmol/L Carbon Dioxide 21 L (22-30) mmol/L Anion Gap 12 mmol/L BUN 10 (7-17) mg/dL Creatinine 0.50 L (0.52-1.04) mg/dL Est GFR (CKD-EPI)AfAm >90 (>60 ml/min/1.73 sqM) Est GFR (CKD-EPI)NonAf >90 (>60 ml/min/1.73 sqM) Glucose 97 (74-99) mg/dL Calcium 8.3 L (8.4-10.2) mg/dL Magnesium 1.7 (1.6-2.3) mg/dL Total Bilirubin 1.3 (0.2-1.3) mg/dL AST 104 H (14-36) U/L ALT 63 H (4-34) U/L Alkaline Phosphatase 77 (38-126) U/L Total Protein 7.6 (6.3-8.2) g/dL Albumin 4.1 (3.5-5.0) g/dL Urine Color Colorless Urine Appearance Clear (Clear) Urine pH 6.5 (5.0-8.0) Ur Specific [place] 1.008 (1.001-1.035) Urine Protein Negative (Negative) Urine Glucose (UA) Negative (Negative) Urine Ketones Negative (Negative) Urine Blood Negative (Negative) Urine Nitrite Negative (Negative) Urine Bilirubin Negative (Negative) Urine Urobilinogen <2.0 (<2.0) mg/dL Ur Leukocyte Esterase Negative (Negative) Urine Opiates Screen Not Detected (NotDetected) Ur Oxycodone Screen Not Detected (NotDetected) Urine Methadone Screen Not Detected (NotDetected) Ur Barbiturates Screen Not Detected (NotDetected) U Tricyclic Antidepress Not Detected (NotDetected) Ur Phencyclidine Scrn Not Detected (NotDetected) Ur Amphetamines Screen Not Detected (NotDetected) U Methamphetamines Scrn Not Detected (NotDetected) U Benzodiazepines Scrn Not Detected (NotDetected) Urine Cocaine Screen Not Detected (NotDetected) U Marijuana (THC) Screen Not Detected (NotDetected) Serum Alcohol 28 mg/dL Disposition Clinical Impression: New onset seizure Disposition: ADMITTED IP TO THIS HOSP Instructions (If sedation given, give patient instructions): Seizure/Epilepsy Discharge Instructions & Follow-Up Is patient prescribed a controlled substance at d/c from ED?: No Referrals: Bebo Hull MD [Primary Care Provider] - 1-2 days Time of Disposition: 20:12
[2024-08-09 18:25] LABS: Anisocytosis Slight; Basophils # (A) 0.1 k/uL (0-0.2); Basophils % (A) 0 %; Eosinophils # (A) 0.1 k/uL (0-0.7); Eosinophils % (A) 1 %; HCT 27.9 % (34.0-46.0); HGB 9.5 gm/dL (11.4-16.0); Lymphocytes # (A) 0.2 k/uL (1.0-4.8); Lymphocytes % (A) 1 %; MCH 33.8 pg (25.0-35.0); MCHC 33.9 g/dL (31.0-37.0); MCV 99.8 fL (80.0-100.0); Macrocytosis Moderate; Mean Platelet Volume 8.6; Monocytes # (A) 0.6 k/uL (0-1.0); Monocytes % (A) 4 %; Neutrophils # (A) 15.2 k/uL (1.3-7.7); Neutrophils % (A) 93 %; RDW 18.1 % (11.5-15.5); WBC 16.4 k/uL (3.8-10.6)
[2024-08-09 18:38] LABS: African American GFR (CKD) >90 (>60 ml/min/1.73 sqM); Alcohol 28 mg/dL; Anion Gap 12 mmol/L; Blood Urea Nitrogen 10 mg/dL (7-17); Calcium 8.3 mg/dL (8.4-10.2); Carbon Dioxide 21 mmol/L (22-30); Chloride 95 mmol/L (98-107); Magnesium 1.7 mg/dL (1.6-2.3); Non-African American GFR(CKD) >90 (>60 ml/min/1.73 sqM); Sodium 128 mmol/L (137-145); Total Bilirubin 1.3 mg/dL (0.2-1.3)
[2024-08-09 18:50] LABS: Platelet Count 63 k/uL (150-450)
[2024-08-09 18:55] LABS: ALT 63 U/L (4-34); AST 104 U/L (14-36); Albumin 4.1 g/dL (3.5-5.0); Alkaline Phosphatase 77 U/L (38-126); Glucose 97 mg/dL (74-99); Potassium 4.9 mmol/L (3.5-5.1); Total Protein 7.6 g/dL (6.3-8.2)
[2024-08-09] MEDS: levETIRAcetam IV 500 MG/5 ML VIAL IVP STA (19:11)
--- NOTE | 2024-08-09 19:27 | CT ---
EXAMINATION TYPE: CT brain wo/w con DATE OF EXAM: 08/09/2024 6:58 PM COMPARISON: None. CLINICAL INDICATION: Female, 54 years old with history of sz, lung ayon h/o; Seizure possibly caused fr om chemo medication. TECHNIQUE: Axial CT images were obtained with coronal and sagittal reformats created and reviewed. Contrast used:100 ml mL of Isovue 300 without and with IV Contrast, Oral contrast used: none. CT DLP: 2142.4 mGycm, Automated exposure control for dose reduction was used. FINDINGS: Extra-axial spaces: No abnormal extra-axial fluid collections. Ventricular system: Within normal limits Cerebral parenchyma: No acute intraparenchymal hemorrhage or mass effect. The lehman-white junction is well differentiated. No abnormal enhancement is seen after the administration of intravenous contras t. Cerebellum: Unremarkable. Mass effect: No evidence of midline shift. Intracranial vasculature: unremarkable Soft tissues: Normal. Calvarium/osseous structures: No depressed skull fracture. Paranasal sinuses and mastoid air cells: Clear. Visualized orbits: Orbital contents are intact. IMPRESSION: 1. No acute intracranial process and no evidence to suggest intracranial mass. [facility], , 08/09/2024 7:25 PM
[2024-08-09 19:51] LABS: Appearance,Urine Clear (Clear); Bilirubin,Urine Negative (Negative); Blood,Urine Negative (Negative); Color,Urine Colorless; Glucose,Urine (UA) Negative (Negative); Ketones,Urine Negative (Negative); Leukocyte Esterase,Urine Negative (Negative); Nitrite,Urine Negative (Negative); PH, Urine 6.5 (5.0-8.0); Protein,Urine Negative (Negative); Specific Gravity,Urine 1.008 (1.001-1.035); Urobilinogen,Urine <2.0 mg/dL (<2.0)
[2024-08-09 19:57] LABS: Amphetamine Screen,Urine Not Detected (NotDetected); Barbiturate Screen,Urine Not Detected (NotDetected); Benzodiazepines Screen,Urine Not Detected (NotDetected); Cocaine Screen,Urine Not Detected (NotDetected); Methadone Screen, Urine Not Detected (NotDetected); Opiate Screen,Urine Not Detected (NotDetected); Oxycodone Screen, Urine Not Detected (NotDetected); Phencyclidine Screen,Urine Not Detected (NotDetected); Tricyclic Antidepressant,Urine Not Detected (NotDetected); Urn Cannabinoid Scrn Not Detected (NotDetected)
[2024-08-09] MEDS ORDERED: NALOXONE 0.4 MG/ML 1 ML VIAL IV PRN (20:13)
[2024-08-09] MEDS ORDERED: traMADol 50 MG TAB PO PRN (20:13)
[2024-08-09] MEDS ORDERED: ACETAMINOPHEN TAB 325 MG TAB PO PRN (20:13)
[2024-08-09] MEDS ORDERED: ONDANSETRON 4 MG TAB PO PRN (20:34)
--- NOTE | 2024-08-09 20:38 | P.HPIM ---
History of Present Illness H&P Date: 08/09/24 Chief Complaint: Possible seizure Pleasant 54-year-old patient who follows with Jeni Chavez. Chronic medical conditions include hyperlipidemia, essential hypertension, COPD,. Summer 2023 patient was diagnosed with stage III lung cancer since non- small cell type. She was tried and autoimmune apparently did not work. Then received chemotherapy. About 6 weeks ago she had what was described by of a shaking episode. Lasted about 20 seconds. Patient did not want to get worked up for the same. Today patient had an episode where she started staring looking to the left that may be lasted about 30 seconds. When she came around. decided to bring her in. No recent MRI of the brain. Patient is back to herself. Review of systems: GEN.: Some decreased appetite EYES: None HEENT: None NECK: None RESPIRATORY: Short of breath wheezing CARDIOVASCULAR: None GASTROINTESTINAL: None GENITOURINARY: None MUSCULOSKELETAL: None LYMPHATICS: None HEMATOLOGICAL: None PSYCHIATRY: None NEUROLOGICAL: [As above Social history: Drinks 5-6 beers a day. Smokes about half a pack a day. . Previously is to work at [employer]. Physical examination: VITAL SIGNS: 98.4, 100, 18, 160 x 85, 96% room air GENERAL: BMI 22.1, laying bed awake. Clubbing EYES: Pupils equal. Conjunctiva alvino l. HEENT: External appearance of nose and ears normal, oral cavity grossly normal. NECK: JVD not raised; masses not palpable. HEART: First and second heart sounds are normal; no edema. LUNGS: Respiratory rate increased, diminished breath sounds wheezing. ABDOMEN: Soft, nontender, liver spleen not palpable, no masses palpable. PSYCH: Alert and oriented x3; mood and affect alvino l. MUSCULOSKELETAL:No Clubbing/cyanosis;muscles-grossly intact NEUROLOGICAL: Cranial nerves grossly intact; no facial asymmetry, power and sensation grossly intact. LYMPHATICS: No lymph nodes palpable in the axilla and neck INVESTIGATIONS, reviewed in the clinical context: August 09: White count 16.4 hemoglobin 9.5 platelets 63 sodium 128 potassium 4.9 BUN 10 creatinine 0.5 AST 104 ALT 63 UA: Negative Urine drug screen or negative Serum alcohol 28 EKG tracing personally reviewed by me-sinus tachycardia. Nonspecific T wave changes. CT brain: Unremarkable Assessment plan: -New onset of seizures. Patient had an episode about 6 weeks ago. Did not seek any treatment. That episode lasted about 15 seconds with a generalized tonic- clonic as described. Does not appear to be more absence seizure. No postictal findings. Given history of lung cancer should rule out metastatic disease. MRI of the brain with contrast Seizure precautions Consult neurology -COPD exacerbation in a current smoker DuoNeb 4 times daily. Pulmicort nebulizer. -Chronic nicotine dependence cigarette smoker Nicotine patch -Alcohol use disorder. Drinks about 6 beers a night. Thiamine. CIWA scale. Valium 1 mg twice daily for prophylaxis -Essential hypertension Amlodipine 10 mg a day -Hyperlipidemia Lipitor 20 mg a day -Elevated liver enzymes could be alcoholic hepatitis Liver ultrasound -Full code Care was discussed with the patient and at the bedside. Consultation to oncology neurology. Past Medical History Past Medical History: COPD, Hyperlipidemia, Hypertension Additional Past Medical History / Comment(s): States PET scan shows a possible cancer. History of Any Multi-Drug Resistant Organisms: None Reported Past Surgical History: No Surgical Hx Reported Additional Past Surgical History / Comment(s): [place] teeth Past Anesthesia/Blood Transfusion Reactions: No Reported Reaction Smoking Status: Current every day smoker - Past Family History Mother Family Medical History: Cancer Additional Family Medical History / Comment(s): Lung Medications and Allergies Home Medications Medication Instructions Recorded Confirmed Type Albuterol Sulfate [Albuterol 1 puff PO RT-Q6H PRN 11/10/23 08/09/24 History Sulfate Hfa] Atorvastatin [Lipitor] 20 mg PO DAILY 11/10/23 08/09/24 History amLODIPine [Norvasc] 10 mg PO DAILY 11/10/23 08/09/24 History Benzonatate [Tessalon Perles] 100 mg PO TID PRN 08/09/24 08/09/24 History Ondansetron [Zofran] 4 mg PO TID PRN 08/09/24 08/09/24 History Potassium Chloride ER [K-Dur 20] 20 meq PO DAILY 08/09/24 08/09/24 History Allergies Allergy/AdvReac Type Severity Reaction Status Date / Time iodine Allergy Anaphylaxis Verified 08/09/24 20:22 shellfish derived [Shellfish] Allergy Anaphylaxis Verified 08/09/24 20:22 Physical Exam Vitals: Vital Signs Temp Pulse Resp BP Pulse Ox 08/09/24 18:16 98.4 F 100 18 160/85 96 Intake and Output 08/09/24 08/09/24 08/09/24 06:59 14:59 22:59 Other: Weight 56.699 kg Results CBC & Chem 7: 08/09/24 18:14 08/09/24 18:14 Labs: Abnormal Lab Results - Last 24 Hours (Table) 08/09/24 08/09/24 Range/Units 18:14 18:14 WBC 16.4 H (3.8-10.6) k/uL RBC 2.80 L (3.80-5.40) m/uL Hgb 9.5 L (11.4-16.0) gm/dL Hct 27.9 L (34.0-46.0) % RDW 18.1 H (11.5-15.5) % Plt Count 63 L (150-450) k/uL Neutrophils # 15.2 H (1.3-7.7) k/uL Lymphocytes # 0.2 L (1.0-4.8) k/uL Sodium 128 L (137-145) mmol/L Chloride 95 L (98-107) mmol/L Carbon Dioxide 21 L (22-30) mmol/L Creatinine 0.50 L (0.52-1.04) mg/dL Calcium 8.3 L (8.4-10.2) mg/dL AST 104 H (14-36) U/L ALT 63 H (4-34) U/L
[2024-08-09] MEDS: IPRATROPIUM-ALBUTEROL 3 ML NEB INHALATION SCH (21:50)
[2024-08-09] MEDS: SODIUM CHLORIDE 0.9% 1,000 ML IV STA (21:58)
[2024-08-09] MEDS: THIAMINE 100 MG TAB PO SCH (21:59)
[2024-08-09] MEDS: NICOTINE 14MG/24HR PATCH TRANSDERM SCH (21:59)
[2024-08-09] MEDS: ENOXAPARIN 40 MG/0.4 ML SYRINGE SQ SCH (22:00)
[2024-08-09] MEDS: diazePAM 2 MG TAB PO SCH (22:00)
[2024-08-10 03:34] LABS: African American GFR (CKD) >90 (>60 ml/min/1.73 sqM); Anion Gap 8 mmol/L; Blood Urea Nitrogen 9 mg/dL (7-17); Calcium 8.8 mg/dL (8.4-10.2); Carbon Dioxide 26 mmol/L (22-30); Chloride 97 mmol/L (98-107); Glucose 107 mg/dL (74-99); Non-African American GFR(CKD) >90 (>60 ml/min/1.73 sqM); Potassium 4.3 mmol/L (3.5-5.1); Sodium 131 mmol/L (137-145)
[2024-08-10 03:36] LABS: Anisocytosis Slight; HCT 28.1 % (34.0-46.0); HGB 9.3 gm/dL (11.4-16.0); MCH 33.9 pg (25.0-35.0); MCV 102.6 fL (80.0-100.0); Macrocytosis Moderate; Mean Platelet Volume 9.6; RBC 2.74 m/uL (3.80-5.40); RDW 18.2 % (11.5-15.5); WBC 27.7 k/uL (3.8-10.6)
[2024-08-10 03:37] LABS: Platelet Count 52 k/uL (150-450)
[2024-08-10 04:05] LABS: Band Neutrophils % 23 %; Neutrophils % (M) 77 %; Nucleated Red Blood Cells 0 /100 WBC (0-0); Total Cells Counted 200
[2024-08-10 04:06] LABS: Toxic Granulation Present
[2024-08-10 04:30] VITALS: TEMP 98.8
[2024-08-10 07:23] LABS: African American GFR (CKD) >90 (>60 ml/min/1.73 sqM); Anion Gap 6 mmol/L; Blood Urea Nitrogen 8 mg/dL (7-17); Calcium 8.6 mg/dL (8.4-10.2); Carbon Dioxide 25 mmol/L (22-30); Chloride 98 mmol/L (98-107); Glucose 101 mg/dL (74-99); Magnesium 1.9 mg/dL (1.6-2.3); Non-African American GFR(CKD) >90 (>60 ml/min/1.73 sqM); Potassium 3.9 mmol/L (3.5-5.1); Sodium 129 mmol/L (137-145)
--- NOTE | 2024-08-10 08:11 | P.CRDCN ---
History of Present Illness Consult date: 08/10/24 Reason for Consult (text): Unsustained SVT History of present illness: This is a 54-year-old female with past medical history of hyperlipidemia, hypertension, COPD, active tobacco use and dependence, non-small cell lung cancer stage III status post immunotherapy and chemotherapy. Patient apparently had seizure-like activity 6 weeks ago lasting 20 seconds and then yesterday had another episode of 30 seconds and came into the hospital for that reason. We have been asked to evaluate the patient for unsustained SVT. Patient denies palpitations. She denies having a fast heart rate in the past. She does have some tightness intermittently which seems to correlate with the episodes of SVT. Telemetry reviewed and patient did have episodes yesterday and overnight of SVT that were nonsustained. Patient is seen today in the emergency center waiting for a bed on the cardiac stepdown unit. Patient's heart rate is currently sinus tachycardia in the low 100s. Patient is an active smoker. She also drinks 6 beers per day. -EKG: Sinus tachycardia at 105 bpm -CT brain: No acute findings -Laboratory studies: WBC 27.7, hemoglobin 9.3, platelet count 52. Sodium 129, potassium 3.9, creatinine 0.54. Magnesium 1.7. Urine drug screen negative. Alcohol level 28. -Home cardiac medications: Atorvastatin 20 mg daily, amlodipine 10 mg daily, potassium 20 mEq daily. Review Of Systems: At the time of my exam: CONSTITUTIONAL: Denies fever or chills. HEENT: Denies blurred vision, vision changes, or eye pain. Denies hemoptysis CARDIOVASCULAR: Denies chest pain. Denies orthopnea. Denies PND. Denies palpitations RESPIRATORY: Denies shortness of breath. GASTROINTESTINAL: Denies abdominal pain. Denies nausea or vomiting. HEMATOLOGIC: Denies bleeding disorders. GENITOURINARY: Denies any blood in urine. SKIN: Denies puritis. Denies rash. Physical examination: Gen: This is a 24-year-old female in no acute distress VS: reviewed HEENT: Head is atraumatic, normocephalic. Pupils equal, round. Sclerae is anicteric. NECK: Supple. No JVD. LUNGS: Clear to auscultation. No wheezes or rhonchi. No intercostal retractions. HEART: Regular rate and rhythm. No murmur. ABDOMEN: Soft No tenderness. EXTREMITIES: No pedal edema. No calf tenderness. NEUROLOGICAL: Patient is awake, alert and oriented x3. Assessment: Nonsustained SVT Seizure activity Non-small cell lung cancer stage III Hypertension Hyperlipidemia Alcohol abuse Tobacco use and dependence smoking cessation. Patient will be provided the [employer] quit line information at discharge. Plan: Resume patient's home cardiac medications Patient started on Toprol XL 50 mg daily No further cardiac workup Cardiology will sign off this case and follow on an as-needed basis. Please reconsult for any new concerns. Patient may follow-up in the office in one to 2 weeks. Thank you kindly for this consultation. Nurse practitioner note has been reviewed, I agree with documented findings and plan of care. Patient was seen and examined. Past Medical History Past Medical History: COPD, Hyperlipidemia, Hypertension Additional Past Medical History / Comment(s): States PET scan shows a possible cancer. History of Any Multi-Drug Resistant Organisms: None Reported Past Surgical History: No Surgical Hx Reported Additional Past Surgical History / Comment(s): [place] teeth Past Anesthesia/Blood Transfusion Reactions: No Reported Reaction Smoking Status: Current every day smoker - Past Family History Mother Family Medical History: Cancer Additional Family Medical History / Comment(s): Lung Medications and Allergies Home Medications Medication Instructions Recorded Confirmed Type Albuterol Sulfate [Albuterol 1 puff PO RT-Q6H PRN 11/10/23 08/09/24 History Sulfate Hfa] Atorvastatin [Lipitor] 20 mg PO DAILY 11/10/23 08/09/24 History amLODIPine [Norvasc] 10 mg PO DAILY 11/10/23 08/09/24 History Benzonatate [Tessalon Perles] 100 mg PO TID PRN 08/09/24 08/09/24 History Ondansetron [Zofran] 4 mg PO TID PRN 08/09/24 08/09/24 History Potassium Chloride ER [K-Dur 20] 20 meq PO DAILY 08/09/24 08/09/24 History Allergies Allergy/AdvReac Type Severity Reaction Status Date / Time iodine Allergy Anaphylaxis Verified 08/09/24 20:22 shellfish derived [Shellfish] Allergy Anaphylaxis Verified 08/09/24 20:22 Physical Exam Vitals: Vital Signs Temp Pulse Pulse Resp BP BP Pulse Ox 08/10/24 04:00 98.8 F 109 H 20 146/81 93 L 08/10/24 02:00 98.9 F 112 H 18 144/84 98 08/09/24 21:46 109 H 18 149/84 98 08/09/24 20:24 102 H 18 176/94 97 08/09/24 18:16 98.4 F 100 18 160/85 96 Intake and Output 08/09/24 08/10/24 08/10/24 22:59 06:59 14:59 Intake Total 200 Balance 200 Intake: Oral 200 Other: Voiding Method Toilet # Voids 1 1 Weight 56.699 kg Results 08/10/24 02:41 08/10/24 06:33 Cardiac Enzymes 08/09/24 Range/Units 18:14 AST 104 H (14-36) U/L CBC 08/09/24 08/10/24 Range/Units 18:14 02:41 WBC 16.4 H 27.7 H (3.8-10.6) k/uL RBC 2.80 L 2.74 L (3.80-5.40) m/uL Hgb 9.5 L 9.3 L (11.4-16.0) gm/dL Hct 27.9 L 28.1 L (34.0-46.0) % Plt Count 63 L 52 L (150-450) k/uL Comprehensive Metabolic Panel 08/09/24 08/10/24 08/10/24 Range/Units 18:14 02:41 06:33 Sodium 128 L 131 L 129 L (137-145) mmol/L Potassium 4.9 4.3 3.9 (3.5-5.1) mmol/L Chloride 95 L 97 L 98 (98-107) mmol/L Carbon Dioxide 21 L 26 25 (22-30) mmol/L BUN 10 9 8 (7-17) mg/dL Creatinine 0.50 L 0.58 0.54 (0.52-1.04) mg/dL Glucose 97 107 H 101 H (74-99) mg/dL Calcium 8.3 L 8.8 8.6 (8.4-10.2) mg/dL AST 104 H (14-36) U/L ALT 63 H (4-34) U/L Alkaline Phosphatase 77 (38-126) U/L Total Protein 7.6 (6.3-8.2) g/dL Albumin 4.1 (3.5-5.0) g/dL Current Medications Generic Name Dose Route Start Last Admin Trade Name Freq PRN Reason Stop Dose Admin Acetaminophen 650 mg 08/09/24 20:13 Acetaminophen Tab 325 Mg Tab PO Q6HR PRN Mild Pain or Fever > 100.5 Albuterol/Ipratropium 3 ml 08/09/24 21:00 08/09/24 21:50 Ipratropium-Albuterol 3 Ml Neb INHALATION Not Given RT-QID [facility] Amlodipine Besylate 10 mg 08/10/24 09:00 Amlodipine 10 Mg Tab PO DAILY [facility] Atorvastatin Calcium 20 mg 08/10/24 09:00 Atorvastatin 20 Mg Tab PO DAILY [facility] Budesonide 1 mg 08/10/24 08:00 Budesonide 1 Mg/2 Ml Nebu INHALATION RT-BID [facility] Diazepam 1 mg 08/09/24 21:00 08/09/24 22:00 Diazepam 2 Mg Tab PO 1 mg BID NIKKO Administration Enoxaparin Sodium 40 mg 08/09/24 20:45 08/09/24 22:00 Enoxaparin 40 Mg/0.4 Ml Syringe SQ Not Given DAILY [facility] Sodium Chloride 1,000 mls @ 75 mls/hr 08/09/24 20:14 08/09/24 21:58 Saline 0.9% IV 08/10/24 09:33 75 mls/hr .[id number] STA Administration Naloxone HCl 0.2 mg 08/09/24 20:13 Naloxone 0.4 Mg/Ml 1 Ml Vial IV Q2M PRN Opioid Reversal Nicotine 1 patch 08/09/24 20:45 08/09/24 21:59 Nicotine 14mg/24hr Patch TRANSDERM 1 patch DAILY NIKKO Administration Ondansetron HCl 4 mg 08/09/24 20:34 Ondansetron 4 Mg Tab PO TID PRN Nausea And Vomiting Thiamine HCl 100 mg 08/09/24 20:45 08/09/24 21:59 Thiamine 100 Mg Tab PO 100 mg DAILY [facility] Administration Tramadol HCl 50 mg 08/09/24 20:13 Tramadol 50 Mg Tab PO Q6H PRN Moderate Pain (Scale 4 to 6) Intake and Output 08/09/24 08/10/24 08/10/24 22:59 06:59 14:59 Intake Total 200 Balance 200 Intake: Oral 200 Other: Voiding Method Toilet # Voids 1 1 Weight 56.699 kg 08/10/24 02:41 08/10/24 06:33
[2024-08-10] MEDS: BUDESONIDE 1 MG/2 ML NEBU INHALATION SCH (08:35)
[2024-08-10] MEDS: ATORVASTATIN 20 MG TAB PO SCH (09:39)
[2024-08-10] MEDS: METOPROLOL SUCCINATE (ER) 50 MG TAB.ER.24H PO SCH (09:39)
[2024-08-10] MEDS: amLODIPine 10 MG TAB PO SCH (09:40)
--- NOTE | 2024-08-10 10:34 | P.PN ---
Progress Note - Text Progress Note Date: 08/10/24 Chief Complaint: Possible seizure Pleasant 54-year-old patient who follows with Jeni Chavez. Chronic medical conditions include hyperlipidemia, essential hypertension, COPD,. Summer 2023 patient was diagnosed with stage III lung cancer since non- small cell type. She was tried and autoimmune apparently did not work. Then received chemotherapy. About 6 weeks ago she had what was described by of a shaking episode. Lasted about 20 seconds. Patient did not want to get worked up for the same. Today patient had an episode where she started staring looking to the left that may be lasted about 30 seconds. When she came around. decided to bring her in. No recent MRI of the brain. Patient is back to herself. August 10: No further episodes. No reported seizure. Will have an MRI done today. EEG on Monday as per neurology. Patient had an episode of unsustained SVT. Toprol-XL was added by cardiology. at bedside. Active Medications Acetaminophen (Acetaminophen Tab 325 Mg Tab) 650 mg PO Q6HR PRN PRN Reason: Mild Pain or Fever > 100.5 Albuterol/Ipratropium (Ipratropium-Albuterol 3 Ml Neb) 3 ml INHALATION RT-QID [facility] Last Admin: 08/10/24 08:35 Dose: 3 ml Amlodipine Besylate (Amlodipine 10 Mg Tab) 10 mg PO DAILY [facility] Last Admin: 08/10/24 09:40 Dose: 10 mg Atorvastatin Calcium (Atorvastatin 20 Mg Tab) 20 mg PO DAILY [facility] Last Admin: 08/10/24 09:39 Dose: 20 mg Budesonide (Budesonide 1 Mg/2 Ml Nebu) 1 mg INHALATION RT-BID [facility] Last Admin: 08/10/24 08:35 Dose: 1 mg Diazepam (Diazepam 2 Mg Tab) 1 mg PO BID [facility] Last Admin: 08/10/24 09:39 Dose: 1 mg Enoxaparin Sodium (Enoxaparin 40 Mg/0.4 Ml Syringe) 40 mg SQ DAILY [facility] Last Admin: 08/10/24 09:52 Dose: Not Given Metoprolol Succinate (Metoprolol Succinate (Er) 50 Mg Tab.Er.24h) 50 mg PO DAILY [facility] Last Admin: 08/10/24 09:39 Dose: 50 mg Naloxone HCl (Naloxone 0.4 Mg/Ml 1 Ml Vial) 0.2 mg IV Q2M PRN PRN Reason: Opioid Reversal Nicotine (Nicotine 14mg/24hr Patch) 1 patch TRANSDERM DAILY [facility] Last Admin: 08/10/24 09:40 Dose: 1 patch Ondansetron HCl (Ondansetron 4 Mg Tab) 4 mg PO TID PRN PRN Reason: Nausea And Vomiting Thiamine HCl (Thiamine 100 Mg Tab) 100 mg PO DAILY [facility] Last Admin: 08/10/24 09:39 Dose: 100 mg Tramadol HCl (Tramadol 50 Mg Tab) 50 mg PO Q6H PRN PRN Reason: Moderate Pain (Scale 4 to 6) Social history: Drinks 5-6 beers a day. Smokes about half a pack a day. . Previously is to work at [employer]. Physical examination: VITAL SIGNS: 98.8, 109, 20, 146 very 1, 93% room air GENERAL: BMI 22.1, sitting up in bed. Finger clubbing EYES: Pupils equal. Conjunctiva alvnio l. HEENT: External appearance of nose and ears normal, oral cavity grossly normal. NECK: JVD not raised; masses not palpable. HEART: First and second heart sounds are normal; no edema. LUNGS: Respiratory rate increased, diminished breath sounds wheezing. ABDOMEN: Soft, nontender, liver spleen not palpable, no masses palpable. PSYCH: Alert and oriented x3; mood and affect alvino l. MUSCULOSKELETAL:No Clubbing/cyanosis;muscles-grossly intact INVESTIGATIONS, reviewed in the clinical context: August 10: White count 27.7 hemoglobin 9.3 platelets 52 sodium 129 potassium 3.9 creatinine 0.54 TSH 3.8 August 09: White count 16.4 hemoglobin 9.5 platelets 63 sodium 128 potassium 4.9 BUN 10 creatinine 0.5 AST 104 ALT 63 UA: Negative Urine drug screen or negative Serum alcohol 28 EKG tracing personally reviewed by me-sinus tachycardia. Nonspecific T wave changes. CT brain: Unremarkable Assessment plan: -New onset of seizures. Patient had an episode about 6 weeks ago. Did not seek any treatment. That episode lasted about 15 seconds with a generalized tonic- clonic as described. Does not appear to be more absence seizure. No postictal findings. Given history of lung cancer should rule out metastatic disease. MRI of the brain with contrast: Pending EEG on Monday Seizure precautions Seen by Dr. Tovar from neurology today. Telemedicine -COPD exacerbation in a current smoker DuoNeb 3 times daily. Pulmicort nebulizer. -Nonsustained SVT Toprol-XL 25 mg added by cardio. Cut back DuoNeb to 3 times daily -Chronic nicotine dependence cigarette smoker Nicotine patch -Alcohol use disorder. Drinks about 6 beers a night. Thiamine. CIWA scale. Valium 1 mg twice daily for prophylaxis -Essential hypertension Amlodipine 10 mg a day -Hyperlipidemia Lipitor 20 mg a day -Elevated liver enzymes could be alcoholic hepatitis Liver ultrasound pending -Full code Toprol-XL 25 mg added. Pending MRI EEG. Cut back DuoNeb to 3 times daily. Past Medical History Past Medical History: COPD, Hyperlipidemia, Hypertension Additional Past Medical History / Comment(s): States PET scan shows a possible cancer. History of Any Multi-Drug Resistant Organisms: None Reported Past Surgical History: No Surgical Hx Reported Additional Past Surgical History / Comment(s): [place] teeth Past Anesthesia/Blood Transfusion Reactions: No Reported Reaction Smoking Status: Current every day smoker
[2024-08-10] MEDS: IPRATROPIUM-ALBUTEROL 3 ML NEB INHALATION SCH (12:23)
--- NOTE | 2024-08-10 12:41 | MR ---
INDICATION: Patient age:Female; 54 years old; Reason for study: sz w lung ca hx; [facility]. COMPARISON: CT brain 08/09/2024 PET/CT 02/08/2024, 12/14/2023. TECHNIQUE: Multi planar, multi sequence imaging was performed through the brain. The patient was then given 6 cc of Gadobutrol intravenously and multi planar, T1 fat-saturation images were obtained. FINDINGS: The lehman-white junctions, ventricular system, basal cisterns appear unremarkable. Age-appropriate cer ebral parenchymal volume. Diffusion-weighted imaging shows no evidence of restricted diffusion to sug gest acute/subacute infarct. Intracranial arterial flow voids are maintained. Midline structures show no abnormality. Few high T2/FLAIR signal intensity foci are seen within the supratentorial subcortic al white matter. Largest cyst within the right insula measuring up to 9 mm (series 701, image 30). Th e susceptibility weighted images do not reveal any evidence for micro-hemorrhage. After administratio n of gadolinium, no abnormal enhancement is seen. The bone marrow signal is within normal limits. The paranasal sinuses and globes are unremarkable. IMPRESSION: 1. No evidence of intracranial mass, acute/subacute infarct, or abnormal enhancement. No definitive e vidence for metastasis. 2. Few nonspecific white matter changes, likely related to small vessel ischemic disease versus other etiologies such as migraines or demyelination. [facility], , 08/10/2024 12:39 PM
--- NOTE | 2024-08-10 12:56 | P.CNNES ---
History of Present Illness Consult date: 08/10/24 History of Present Illness: The patient is a 54-year-old female who was seen in neurologic consultation on August 10, 2024, in collaboration with Roxanne Coburn, via teleneurology. History is obtained from the patient, her who was present at the bedside at the time of the evaluation and review of the chart. The patient apparently has a history of small cell lung cancer. She was treated with immunotherapy which was ineffective. Patient has recently began chemotherapy. In regards to her symptoms, the patient states that she will suddenly feel a warm/flushed feeling, lightheadedness and dimming of her vision. She says that just last thing she knows before waking up either on the floor or somewhere else. She says that once she awakens, she does not have any confusion. She says she is able to get right up. According to the patient's , he describes what he has seen. He says that she will have eye movements to the right with jerking movements of her head. He reports that she is unresponsive for about 20 seconds. Another episode occurred however was little bit different, he reports that about 9 weeks ago she "fainted" he says that she fell to the floor. Her eyes were reportedly closed and she had shaking her arms. The patient does report loss of bowel and bladder control with these episodes. She denies tongue biting. She says that these episodes have occurred approximately 2 days following her chemotherapy treatments. The patient reports that her weight is stable. She is drinking a lot of fluids. In the emergency department, CT scan of the brain was performed. There is no reported evidence of acute hemorrhage or infarct. Alcohol level in the ER was reportedly 28. Other labs were essentially normal. Past Medical History Past Medical History: COPD, Hyperlipidemia, Hypertension Additional Past Medical History / Comment(s): States PET scan shows a possible cancer. History of Any Multi-Drug Resistant Organisms: None Reported Past Surgical History: No Surgical Hx Reported Additional Past Surgical History / Comment(s): [place] teeth Past Anesthesia/Blood Transfusion Reactions: No Reported Reaction Smoking Status: Current every day smoker - Past Family History Mother Family Medical History: Cancer Additional Family Medical History / Comment(s): Lung Medications and Allergies Home Medications Medication Instructions Recorded Confirmed Type Albuterol Sulfate [Albuterol 1 puff PO RT-Q6H PRN 11/10/23 08/09/24 History Sulfate Hfa] Atorvastatin [Lipitor] 20 mg PO DAILY 11/10/23 08/09/24 History amLODIPine [Norvasc] 10 mg PO DAILY 11/10/23 08/09/24 History Benzonatate [Tessalon Perles] 100 mg PO TID PRN 08/09/24 08/09/24 History Ondansetron [Zofran] 4 mg PO TID PRN 08/09/24 08/09/24 History Potassium Chloride ER [K-Dur 20] 20 meq PO DAILY 08/09/24 08/09/24 History Allergies Allergy/AdvReac Type Severity Reaction Status Date / Time iodine Allergy Anaphylaxis Verified 08/09/24 20:22 shellfish derived [Shellfish] Allergy Anaphylaxis Verified 08/09/24 20:22 Physical Examination - Vital Signs Vital Signs: Vital Signs Temp Pulse Pulse Resp BP BP Pulse Ox 08/10/24 04:00 98.8 F 109 H 20 146/81 93 L 08/10/24 02:00 98.9 F 112 H 18 144/84 98 08/09/24 21:46 109 H 18 149/84 98 08/09/24 20:24 102 H 18 176/94 97 08/09/24 18:16 98.4 F 100 18 160/85 96 Intake and Output 08/09/24 08/10/24 08/10/24 22:59 06:59 14:59 Intake Total 200 Balance 200 Intake: Oral 200 Other: Voiding Method Toilet # Voids 1 1 Weight 56.699 kg General: The patient is reclining in bed. She is well-nourished, well-developed and in no acute distress. HEENT: Head is atraumatic, normocephalic. Fundus not visualized. There is no scleral icterus. Mucous members are moist. Neck: Supple without carotid bruits Heart: Regular rate and rhythm without murmur. Lungs: Essentially clear to auscultation Extremities: Without edema Neurological examination Mental status: The patient awake, alert and oriented x 3. Speech is clear. There is no dysarthria or aphasia. Cranial nerves: Pupils are equal at 2 mm, round and reactive. Visual davis are full to confrontation. Extraocular movements are intact. There is no nystagmus. Facial sensation is intact. There is no facial asymmetry. Hearing is grossly intact. Uvula and palate are midline. Shoulder shrug is symmetric. Tongue protrudes midline, without evidence of bite. Motor: Strength is 5/5 in bilateral upper and lower extremities. Sensation: Intact to light touch throughout. There is no extinction with double simultaneous stimulation. Deep tendon reflexes: 2+/4+ throughout. Coordination: [id number], rapid alternating movements and [id number] testing are intact. There is no pronator drift. Gait: Not assessed Results - Laboratory Findings CBC and BMP: 08/10/24 02:41 08/10/24 06:33 Abnormal Lab Findings: Abnormal Labs 08/09/24 08/09/24 08/10/24 18:14 18:14 02:41 WBC 16.4 H 27.7 H RBC 2.80 L 2.74 L Hgb 9.5 L 9.3 L Hct 27.9 L 28.1 L MCV 102.6 H RDW 18.1 H 18.2 H Plt Count 63 L 52 L Neutrophils # 15.2 H Neutrophils # (Manual) 27.70 H Lymphocytes # 0.2 L Sodium 128 L Chloride 95 L Carbon Dioxide 21 L Creatinine 0.50 L Glucose Calcium 8.3 L AST 104 H ALT 63 H 08/10/24 08/10/24 02:41 06:33 WBC RBC Hgb Hct MCV RDW Plt Count Neutrophils # Neutrophils # (Manual) Lymphocytes # Sodium 131 L 129 L Chloride 97 L Carbon Dioxide Creatinine Glucose 107 H 101 H Calcium AST ALT Assessment and Plan Assessment: 1. Episodes of loss of consciousness with reported, associated loss of bowel and bladder control. There is no reported postictal state, no tongue biting. The patient describes a feeling of warmth, diaphoresis, lightheadedness and dimming of her vision, prior to the onset of loss of consciousness. These episodes are likely consistent with convulsive syncope. The patient does however have a history of lung cancer and so brain mets must be ruled out as a potential etiology for seizure 2. History of hypertension 3. History of hyperlipidemia 4. Alcohol use disorder 5. Current tobacco use Plan: 1. MRI of the brain with and without gadolinium to evaluate for cerebral metastases. This imaging has been completed. I have personally viewed the images. They are negative for cerebral mets. Radiology also reports a negative brain MRI 2. EEG for further evaluation of seizure, this can be done as an outpatient. The patient requests discharge 3. The patient is neurologically stable for discharge. She was advised to follow-up with her family doctor to obtain a prescription for an outpatient EEG, to be done as soon as possible 4. Antiepileptic medication is not indicated at this time 5. The patient was advised to change positions slowly, drink fluids Thank you for allowing us to participate in care of this patient Time with Patient: Greater than 30 (60 minutes were spent caring for this patient today including, obtaining history, examining the patient, reviewing imaging, chart documentation, labs, placing orders and creating this note)
[2024-08-10 14:44] VITALS: BP 135/65; PULSE 109; RESP 18
--- NOTE | 2024-08-11 18:49 | P.DS ---
Providers Date of admission: 08/09/24 20:13 Expected date of discharge: 08/11/24 Attending physician: Emil Badillo Consults: 08/09/24 20:13 Consult Physician Routine Consulting Provider: Gilbert Simmons Consult Reason/Comments: new seizure Do you want consulting provider notified?: Yes Consult Physician Routine Consulting Provider: Josh Ashton Consult Reason/Comments: oncological care Do you want consulting provider notified?: Yes 08/10/24 06:15 Consult Physician Routine Consulting Provider: Perry Lacy Consult Reason/Comments: unsustained SVT Do you want consulting provider notified?: Yes Primary care physician: [facility] Course: Chief Complaint: Possible seizure Pleasant 54-year-old patient who follows with Jeni Chavez. Chronic medical conditions include hyperlipidemia, essential hypertension, COPD,. Summer 2023 patient was diagnosed with stage III lung cancer since non- small cell type. She was tried and autoimmune apparently did not work. Then received chemotherapy. About 6 weeks ago she had what was described by of a shaking episode. Lasted about 20 seconds. Patient did not want to get worked up for the same. Today patient had an episode where she started staring looking to the left that may be lasted about 30 seconds. When she came around. decided to bring her in. No recent MRI of the brain. Patient is back to herself. August 10: No further episodes. No reported seizure. Will have an MRI done today. EEG on Monday as per neurology. Patient had an episode of unsustained SVT. Toprol-XL was added by cardiology. at bedside. Later per neurology they cleared the patient to go home. MRI was unremarkable per Dr. Tovar. Patient to follow-up with PCP and get EEG as outpatient. No antiepileptic drug. I would have the patient stay 1 more day for some more breathing treatments. Patient wanted to leave. As a nurse at call me. Social history: Drinks 5-6 beers a day. Smokes about half a pack a day. . Previously is to work at [employer]. Physical examination: VITAL SIGNS: Afebrile, 106, 20, 136 per 73, 96% room air GENERAL: BMI 22.1, sitting up in bed. Finger clubbing EYES: Pupils equal. Conjunctiva alvino l. HEENT: External appearance of nose and ears normal, oral cavity grossly normal. NECK: JVD not raised; masses not palpable. HEART: First and second heart sounds are normal; no edema. LUNGS: Respiratory rate increased, diminished breath sounds wheezing. ABDOMEN: Soft, nontender, liver spleen not palpable, no masses palpable. PSYCH: Alert and oriented x3; mood and affect alvino l. MUSCULOSKELETAL:No Clubbing/cyanosis;muscles-grossly intact INVESTIGATIONS, reviewed in the clinical context: Brain MRI: Nothing acute August 10: White count 27.7 hemoglobin 9.3 platelets 52 sodium 129 potassium 3.9 creatinine 0.54 TSH 3.8 August 09: White count 16.4 hemoglobin 9.5 platelets 63 sodium 128 potassium 4.9 BUN 10 creatinine 0.5 AST 104 ALT 63 UA: Negative Urine drug screen or negative Serum alcohol 28 EKG tracing personally reviewed by me-sinus tachycardia. Nonspecific T wave changes. CT brain: Unremarkable Assessment plan: -New onset of seizures. Patient had an episode about 6 weeks ago. Did not seek any treatment. That episode lasted about 15 seconds with a generalized tonic- clonic as described. Does not appear to be more absence seizure. No postictal findings. Given history of lung cancer should rule out metastatic disease. MRI of the brain with contrast: Negative EEG to be requested by PCP to be done outpatient as per Dr. Tovar No medications per neurology. Seen by Dr. Tovar from neurology-[place] -COPD exacerbation in a current smoker DuoNeb 3 times daily. Pulmicort nebulizer. -Nonsustained SVT Toprol-XL 25 mg added by cardio. -Chronic nicotine dependence cigarette smoker Nicotine patch -Alcohol use disorder. Drinks about 6 beers a night. Thiamine. CIWA scale. Valium 1 mg twice daily for prophylaxis -Essential hypertension Amlodipine 10 mg a day -Hyperlipidemia Lipitor 20 mg a day -Elevated liver enzymes could be alcoholic hepatitis Follow-up outpatient with PCP/GI -Full code Disposition: Patient decided to leave A [I wanted the patient to stay back for pulmonary status.] Past Medical History Past Medical History: COPD, Hyperlipidemia, Hypertension Additional Past Medical History / Comment(s): States PET scan shows a possible cancer. History of Any Multi-Drug Resistant Organisms: None Reported Past Surgical History: No Surgical Hx Reported Additional Past Surgical History / Comment(s): Drifting teeth Past Anesthesia/Blood Transfusion Reactions: No Reported Reaction Smoking Status: Current every day smoker Plan - Discharge Summary New Discharge Prescriptions: No Action Atorvastatin [Lipitor] 20 mg PO DAILY Albuterol Sulfate [Albuterol Sulfate Hfa] 1 puff PO RT-Q6H PRN PRN Reason: Shortness Of Breath Potassium Chloride ER [K-Dur 20] 20 meq PO DAILY amLODIPine [Norvasc] 10 mg PO DAILY Ondansetron [Zofran] 4 mg PO TID PRN PRN Reason: Nausea And Vomiting Benzonatate [Tessalon Perles] 100 mg PO TID PRN PRN Reason: Cough Discharge Medication List Albuterol Sulfate [Albuterol Sulfate Hfa] 1 puff PO RT-Q6H PRN 11/10/23 [History] Atorvastatin [Lipitor] 20 mg PO DAILY 11/10/23 [History] amLODIPine [Norvasc] 10 mg PO DAILY 11/10/23 [History] Benzonatate [Tessalon Perles] 100 mg PO TID PRN 08/09/24 [History] Ondansetron [Zofran] 4 mg PO TID PRN 08/09/24 [History] Potassium Chloride ER [K-Dur 20] 20 meq PO DAILY 08/09/24 [History] Follow up Appointment(s)/Referral(s): Bebo Hull MD [Primary Care Provider] - 1-2 days Patient Instructions/Handouts: Seizure/Epilepsy Discharge Instructions & Follow-Up Discharge Disposition: LEFT AGAINST MEDICAL ADVICE
== END 2024-08-10 14:51 | disposition left against medical advice (07) ==
LOC: EC 17:16 → 6NMEDSUR 20:13 → 3SCARD 20:20
PROVIDERS: ADMIT Hospitalist; ATTEND Hospitalist
DX: R56.9 Unspecified convulsions (principal); J44.1 Chronic obstructive pulmonary disease with (acute) exacerbation; I47.10 Supraventricular tachycardia, unspecified; C34.90 Malignant neoplasm of unspecified part of unspecified bronchus or lung; F17.210 Nicotine dependence, cigarettes, uncomplicated; I10 Essential (primary) hypertension; E78.5 Hyperlipidemia, unspecified; R74.8 Abnormal levels of other serum enzymes; F10.10 Alcohol abuse, uncomplicated; Y90.1 Blood alcohol level of 20-39 mg/100 ml; Z79.899 Other long term (current) drug therapy; Z91.013 Allergy to seafood; Z91.048 Other nonmedicinal substance allergy status; Z53.29 Procedure and treatment not carried out because of patient's decision for other reasons
CPT/HCPCS: 96374; 99285; 36415; 94640; 93005; 80053; 80048; 84443; 83735 ×2; 85025 ×2; 81003; 80306; 80320; 70470; 70553; G0378 ×2; S4990 ×2; J1953; Q9967; A9585

== ENCOUNTER → 2024-09-04 | Outpatient (CLI) | payer OTHER, BC ==
[2024-09-04 11:11] LABS: African American GFR (CKD) >90 (>60 ml/min/1.73 sqM); Blood Urea Nitrogen 12 mg/dL (7-17); Non-African American GFR(CKD) >90 (>60 ml/min/1.73 sqM)
--- NOTE | 2024-09-05 08:10 | CT ---
EXAMINATION TYPE: CT ChestAbdPelvis w con DATE OF EXAM: 09/04/2024 12:33 PM COMPARISON: 2 CLINICAL INDICATION: Female, 54 years old with history of C34.2 LUNG CANCER, lung ca TECHNIQUE: CT ChestAbdPelvis w con , with sagittal coronal reformats. If MIP/3-D images were created, there are created on a separate workstation. Contrast used:100 mL of Isovue 300 with IV Contrast, (none if empty) Oral contrast used: with Oral Contrast (none if empty) CT DLP: 671.9 mGycm, Automated exposure control for dose reduction was used. FINDINGS: CT CHEST: Portion of the thyroid visualized is normal. There is consolidation with air bronchograms in the right middle lobe. This extends to the hilum. Thi s measures 6.3 x 7.0 cm. Previous measurement 9.0 x 8.1 cm. Volume is diminished. There is a 0.4 cm nodular density periphery of the right upper lung field. Image 20. This is new. Sev eral new small areas of slight increased density are scattered within the lung davis bilaterally are nonspecific. There is a new lobular density within the posterior medial left lung base measuring 1.1 cm. Image 50. Some stable findings are present. There is a 1.1 cm posterior lateral right upper lung field density. Image 32. Scattered pneumatoceles. There is an area of increased density measuring 1.8 x 1.4 cm post erior right upper lobe image 18. There is is better defined and likely smaller on the current exam. No enlarged mediastinal or hilar adenopathy is evident. Several small lymph nodes within the mediast inum. The ascending aorta diameter at the level of the main pulmonary artery is 3.0 cm. The main pulmonary artery diameter at the bifurcation is 2.[address] ABDOMEN: Liver: There may be some mild fatty infiltration of the liver. Spleen: Normal Pancreas: Normal Adrenal glands: There is thickening of the left adrenal gland 1.3 cm. Right adrenal gland appears nor mal. Gallbladder: Normal Kidneys: No masses are evident. No hydronephrosis is present. No cysts are present. Delayed images were obtained through the kidneys, which remain unremarkable. Aorta: Vascular calcification is within the aorta. Inferior vena cava: Normal. CT PELVIS: Loops of bowel within the abdomen and pelvis are normal. There are loops of bowel which are incom pletely distended or lack oral contrast limiting their evaluation. Appendix: Normal as visualized. Urinary bladder: Decompressed limiting evaluation Genitourinary structures: Uterus is normal. Adnexa are normal Osseous structures: No suspicious lytic or sclerotic lesions. IMPRESSION: 1. Large density within the right anterior midlung is smaller than the comparison. 2. There are several small new finding scattered within the bilateral lung davis. These are suspicio us for metastasis. 3. Some of the previously identified densities appears stable or slightly smaller than the comparison . 4. Stable left adrenal gland [facility], , 09/05/2024 8:08 AM
== END | disposition home or self-care (01) ==
LOC: RADCTMAIN 10:27
PROVIDERS: ATTEND Internal Medicine Hematology & Oncology
DX: C34.2 Malignant neoplasm of middle lobe, bronchus or lung (principal); J98.4 Other disorders of lung; E27.9 Disorder of adrenal gland, unspecified
CPT/HCPCS: 82565; 84520; 71260; 74177; 36415; Q9967

== ENCOUNTER → 2024-11-05 | Outpatient (CLI) | payer BC ==
--- NOTE | 2024-11-05 14:46 | CT ---
EXAMINATION TYPE: CT ChestAbdPelvis w con DATE OF EXAM: 11/05/2024 COMPARISON: 09/04/2024 CLINICAL INDICATION: Female, 54 years old with history of C50.[address] DLP: 1307 mGycm Automated exposure control for dose reduction was used. CONTRAST: CT scan of the chest, abdomen and pelvis is performed with Oral Contrast and with IV Contrast, patien t injected with 100 mL of Isovue 300. FINDINGS: CT chest: There is a Mediport catheter on the right terminating in the SVC/RA junction. Scattered areas of diff use interstitial density with large areas of lung consolidation are again seen in the right upper lob e, essentially stable. There is persistent narrowing of the right upper lobe bronchus by abnormal so ft tissue density. There has been interval development of a large area of consolidation and diffuse i nterstitial and nodular density in the right lower lobe. The scattered groundglass densities and mil d reticular nodular densities left lung have essentially clear in the interval. There are bilateral s table small lung cysts in the upper lobes. There is no pleural effusion, pleural thickening or pneumothorax. The great vessels and chest are normal there is no mediastinal, hilar or axillary adenopathy. No focal osseous lesions are seen. CT abdomen and pelvis: Gallbladder is normal without distention, pericholecystic fluid, wall thickening or gallstone. There is no biliary ductal dilatation. There is no focal mass or organomegaly involving the liver, pancreas, spleen or adrenal glands.. Ther e is moderate liver steatosis. There is stable mild left adrenal nodularity. There is no solid renal mass or hydronephrosis. There is no retroperitoneal adenopathy or hemorrhage in the caliber of the abdominal aorta is normal. The bowel loops are normal in caliber and there is no dilatation or obstruction. No inflammatory joseph ges identified in the bowel wall and mesentery. There is no free intracranial air or fluid. There is no pelvic mass or adenopathy. There is no free fluid within the pelvis. No focal osseous lesions are seen. Soft tissue the abdomen and pelvis are normal. IMPRESSION: 1. New large focal area of dense consolidation and interstitial pattern in the right lung base consis tent with worsening metastatic disease. 2. Centimeters 3 stable interstitial opacities and dense consolidation in the right upper lobe. 3. Resolution of the scattered small densities and reticular nodular densities in the left lung. 4. no evidence of metastatic disease within the abdomen or pelvis. 5. No focal osseous lesions. [facility], , 11/05/2024 2:44 PM
== END | disposition home or self-care (01) ==
LOC: RADCTMAIN 12:57
PROVIDERS: ATTEND Internal Medicine Hematology & Oncology
DX: C34.2 Malignant neoplasm of middle lobe, bronchus or lung (principal); J44.1 Chronic obstructive pulmonary disease with (acute) exacerbation; R94.5 Abnormal results of liver function studies; R09.02 Hypoxemia; E78.5 Hyperlipidemia, unspecified; G62.0 Drug-induced polyneuropathy; J84.89 Other specified interstitial pulmonary diseases
CPT/HCPCS: 71260; 74177; Q9967